=== PATIENT | male | born 1950 | race Caucasian/White ===

== ENCOUNTER 2017-03-16 17:35 | Inpatient (IN) | payer OTHER ==
[~2017-03-16] VITALS: Ht 172.7 cm; Wt 145.9 kg
[2017-03-16 17:39] VITALS: BP 128/64; PULSE 113; RESP 30; O2SAT 96
[2017-03-16 18:10] LABS: BASOPHILS % (AUTO) 0.1 % (0-3); EOSINOPHILS % (AUTO) 0 % (0-5); MONOCYTES % (AUTO) 7.1 % (4-12); Mean Corpuscular Hemoglobin 32.4 pg (27.0-35.0); NEUTROPHILS % (AUTO) 82.7 % (40-74); Platelet Count 120 bil/L (150-400)
[2017-03-16 18:16] VITALS: BP 108/65; PULSE 144; RESP 34; O2SAT 96
--- NOTE | 2017-03-16 18:31 | DRSVH ---
PROCEDURE: X-RAY CHEST ONE VIEW, PORTABLE ([id number]) INDICATIONS: SHORTNESS OF BREATH, fever TECHNIQUE: One view of the chest was acquired. COMPARISON: None. FINDINGS: Surgical changes and devices: None. Lungs and pleura: No pleural effusions or pneumothorax. Lungs are clear. Mediastinum: Mediastinal contours appear normal. Heart size is normal. Bones and chest wall: No suspicious bony lesions. Overlying soft tissues appear unremarkable. IMPRESSION: No acute disease is seen a semiupright portable chest. Dictated by: Kerwin Forbes M.D. on 03/16/2017 at 18:28 Approved by: Kerwin Forbes M.D. on 03/16/2017 at 18:30
--- NOTE | 2017-03-16 18:34 | ED.REPORT ---
HPI-General Illness Date of Service March 16, 2017 ED Provider: Will Cooley MD 66 year old male with a hx of HTN, Afib and bilat PE tubes who presents to the ER with 72 hours of fever. Associated symptoms include ear pain, SOB and N/V/D. Pt also had a dog bite to his right hand with no signs of infection. Nursing Notes Stated Complaint: HIGH TEMP,LEG SWELLING Chief Complaint: General Complaint Nursing Notes Reviewed: Yes Allergies: Coded Allergies: No Known Allergies (Verified , 06/13/06) states is not allergic to codeine General Time Seen by MD: 18:32 Chief Complaint Fever Hx Obtained From: Patient, Other family... Arrived By: Wheelchair Sudden in Onset?: No Onset Occurred: 3 days ago Symptom Duration: Since onset Location: : Ear left: Ear right Quality: Painful Severity: Current: Mild Associated with: Reports: Fever, Shortness of breath Past Medical History Past Medical History Reports: Hypertension, Denies: Asthma, Cancer, Congestive heart failure, Diabetes mellitus, Stroke Reports: Atrial fibrillation (on Pradaxa) Past Surgical History R mastoid Bilat PE tubes Smoking History Current Every Day Smoker Social History Alcohol Use: Denies alcohol use Drug Use: Denies drug use Review of Systems Full Review of Systems Constitutional: Reports: Fever Ears / Nose / Throat: Reports: Earache bilateral Respiratory: Reports: Shortness of breath GI: Reports: Diarrhea, Nausea, Vomiting Complete sys rev & neg: except as marked. Physical Exam Vital Signs Vital Signs Date Time Temp Pulse Resp B/P Pulse Ox O2 Delivery O2 Flow Rate FiO2 03/16/17 18:16 144 34 108/65 96 Room Air 03/16/17 17:39 38.7 113 30 128/64 96 Room Air Initial VS: Reviewed Head / Eyes: Atraumatic, Normocephalic, PERRL ENT: Conjunctiva normal, No scleral icterus Respiratory: Breath sounds normal, Clear to auscultation, No respiratory distress Abdomen / GI: Soft, Non-tender, No guarding, No rebound, No distention Extremities: Vascular intact (Peripheral edema bilat), Neuro intact, No tenderness Skin: Warm, Dry, No cyanosis (Healing dog bite wound to R hand without any surrounding erythema, swelling or tenderness. ) Neurologic: Alert, Oriented, Nonfocal Psychiatric: Mood/affect normal, Behavior normal, Normal thought content General/Constitutional: Awake, Alert Appearance / Presentation: Positive: Obese Hard of hearing ENT: Mucous membranes moist, Pharynx NL Ears: Bilat tubes and opacity. Fluid on L. Cardiovascular: Peripheral circulation NL Heart Rate / Rhythm: Positive: Irreg irregular rhythm, Tachycardia Interpretation & Diagnostics Lab Results Interpretation Result Diagram: 03/16/17 1748 03/16/17 1745 Test 03/16/17 17:45 03/16/17 17:48 03/16/17 19:15 Sodium Level 135mEq/L (134-144) Potassium Level 4.8mEq/L (3.5-5.2) Chloride Level 97mEq/L (97-108) Carbon Dioxide Level 21mmol/L (18-29) Blood Urea Nitrogen 32mg/dL (8-27) Creatinine 2.14mg/dL (0.76-1.27) Estimat Glomerular Filtration Rate 33mL/min (>59) Glucose Level 111mg/dL (60-99) Lactic Acid Level 3.5mmol/L (0.4-2.0) Calcium Level 9.1mg/dL (8.5-10.1) Magnesium Level 1.0mg/dL (1.6-2.6) Total Bilirubin 0.6mg/dL (0.0-1.2) Aspartate Amino Transf (AST/SGOT) 31U/L (0-50) Alanine Aminotransferase (ALT/SGPT) 27U/L (0-44) Alkaline Phosphatase 64U/L (25-160) Troponin T 0.083ug/L (0.0-0.011) Pro-B-Type Natriuretic Peptide 3998pg/mL (0-210) Total Protein 6.8g/dL (6.4-8.4) Albumin 3.2g/dL (3.4-5.0) White Blood Count 8.9th/mm3 (3.8-10.1) Red Blood Count 4.10mil/mm3 (4.40-5.80) Hemoglobin 13.3g/dL (13.8-17.2) Hematocrit 40.6% (41.0-50.0) Mean Corpuscular Volume 99.0fL (81-100) Mean Corpuscular Hemoglobin 32.4pg (27.0-35.0) Mean Corpuscular Hemoglobin Concent 32.8% (32.0-37.0) Red Cell Distribution Width 15.3% (12.3-15.4) Platelet Count 120bil/L (150-400) Neutrophils (%) (Auto) 82.7% (40-74) Lymphocytes (%) (Auto) 9.9% (14-46) Monocytes (%) (Auto) 7.1% (4-12) Eosinophils (%) (Auto) 0% (0-5) Basophils (%) (Auto) 0.1% (0-3) Urine Color Dark yellow (YELLOW) Urine Appearance Hazy (CLEAR,HAZY) Urine pH 5.0 (5.0-8.0) Urine Specific [place] 1.025 (1.003-1.035) Urine Protein 300mg/dL (NEG,TRACE) Urine Glucose (UA) Negativemg/dL (NEGATIVE) Urine Ketones Negativemg/dL (NEGATIVE) Urine Occult Blood Large (NEGATIVE) Urine Nitrite Negative (NEGATIVE) Urine Bilirubin Negative (NEGATIVE) Urine Urobilinogen Normalmg/dL (NORMAL) Urine Leukocyte Esterase Negative (NEGATIVE) Urine RBC 0-2/hpf (0-2) Urine WBC 0-5/hpf (0-5) Urine Epithelial Cells Few/hpf (NONE-MOD) Urine Crystals Amorphous urates (NONE Urine Bacteria None/hpf (NONE-FEW) Urine Hyaline Casts None/lpf (NONE) Urine Granular Casts None seen (NONE SEEN) Urine Waxy Casts None seen (NONE SEEN) Urine Red Blood Cell Casts None seen (NONE SEEN) Urine White Blood Cell Casts None seen (NONE SEEN) Urine Mucus None seen (None Seen) Urine Trichomonas None seen (NONE SEEN) Urine Yeast None (NONE SEEN) Urinalysis Comment None Urine Culture Reflexed Not indicated General Lab Results Interp 1: Labs reviewed ECG Interpretation ECG Interpretation: RBBB and LPFB Time: 17:55 Interpreted by: ED physician Rhythm / Conduction: Atrial fibrillation (rate 127) X-Ray Chest Interpretation Chest Xray Interpretation: IMPRESSION: No acute disease is seen a semiupright portable chest. Dictated by: Kerwin Forbes M.D. on 03/16/2017 at 18:28 View: Portable, 1 view Interpretation / Wet Read by: Interpret - Radiologist Re-Eval/Medical Decision Time of Eval: 20:02 Re-Evaluation/Progress Note: Updated pt of labs, ECG and imaging results. Recommended admission. Pt understands and agrees with plan. All questions addressed. Consultation : Referral / Consult Name: Jeff Jimenez MD Consulted With: Hospitalist Call Returned at: 20:03 Delivery Recruiter: Will see patient, Agrees with eval, Agrees with plan, Accepts admit Counseled Regarding: Diagnosis, Lab results, Need for admission Discharge & Departure Primary Impression: Sepsis Sepsis type: sepsis due to unspecified organism Qualified Code: A41.9 - Sepsis, unspecified organism Disposition: ADMITTED TO HOSPITAL Discharge Condition All VS Reviewed: Yes Referrals: Romeo Sandoval MD (PCP) Scribe Attestation Portions of this note were transcribed by Mari Buchanan. I, (Dr. Cooley) personally performed the history, physical exam and medical decision-making; I reviewed and confirmed the accuracy of the information in the transcribed note. Signed by: Mari Buchanan. Leah, 03/16/2017, 195 copies to: Romeo Sandoval MD, Kirk H MD March 16, 2017 18:34 Mari Buchanan March 16, 2017 18:40
[2017-03-16] MEDS ORDERED: 0.9% Sodium Chloride 1,000 ML IV ONE (18:44)
[2017-03-16] MEDS ORDERED: Tobramycin per Pharmacist XX ONE (18:45)
[2017-03-16] MEDS ORDERED: Piperacillin-Tazo 3.375 Gm Inj 3.375 GM in Dextrose 5% Minibag Plus 50 ML IV ONE (18:45)
[2017-03-16] MEDS ORDERED: Vancomycin Dose per Pharmacist XX ONE (18:45)
[2017-03-16] MEDS ORDERED: Doxycycline Inj 100 MG in Dextrose 5% 100 ML IV ONE (18:45)
[2017-03-16 19:03] LABS: TROPONIN T 0.083 ug/L (0.0-0.011)
[2017-03-16] MEDS ORDERED: Magnesium Sulf 2 Gm/50mL Water 2 GM in IV Premix 1 EACH IV ONE (19:35)
[2017-03-16 20:12] LABS: APPEARANCE,URINE HAZY (CLEAR,HAZY); COLOR,URINE DARK YELLOW (YELLOW)
[2017-03-16 20:13] LABS: OCCULT BLOOD,URINE LARGE (NEGATIVE); UROBILINOGEN,URINE NORMAL (NORMAL)
[2017-03-16] MEDS: Piperacillin-Tazo 3.375 Gm Inj 3.375 GM in Dextrose 5% Minibag Plus 50 ML IV SCH (20:30)
[2017-03-16] MEDS ORDERED: Alum-Mag Hydrox-Simeth 30 mL Suspension PO PRN ×2 (20:50→20:55)
[2017-03-16] MEDS ORDERED: Ondansetron 2 mg/mL 2 mL Inj IVPUSH PRN ×2 (20:50→20:55)
[2017-03-16] MEDS ORDERED: Polyethylene Glycol (PEG) 17 Gm Powder PO PRN (20:55)
--- NOTE | 2017-03-16 21:05 | PCM.HPMED ---
Subjective Date of Service March 16, 2017 Primary Provider: Admitting Physician: Jeff Jimenez MD Primary Care Physician: Tana Sandoval MD Attending Physician: Jeff Jimenez MD Admit Status: From the Emergency Department Chief Complaint: Shortness of breath and chills History of Present Illness: This is a 66-year-old male with past medical history significant for atrial fibrillation and hypertension who presents today for shortness of breath and chills. Patient states that beginning approximately 3 days ago he began having shortness of breath. Shortness of breath is worse with exertion. The patient also describes orthopnea but no paroxysmal nocturnal dyspnea. He has been sleeping in a recliner for the last several days due to shortness of breath on lying down. Associated symptoms: Diaphoresis. He also describes worsening lower extremity swelling. He states that he had a echocardiogram one year ago that was normal but these records are not available for review today. The patient denies any chest pain or pressure, numbness or tingling in extremities, diarrhea, nausea, vomiting. Of note, the patient did have a dog bite to his right hand 2 weeks ago. He also was shucking oysters this weekend and had a small burn on his abdomen while cooking these oysters. No recent travel outside of country. In the emergency department initial vitals were temperature 38.7 Celsius, pulse 113, respiratory rate 30, blood pressure 128/64, satting at 96% on room air. Initial laboratory values WBC 8.9 with left shift, hemoglobin 13.3, hematocrit 40.6, platelets 120. BUN 32, creatinine 2.14, glucose 111, lactic acid 3.5, magnesium 1.0, troponin 0.083, proBNP 3998. Urinalysis showed no concerning abnormalities. Chest x-ray showed no acute disease. EKG showed atrial fibrillation with rate of 1:30. QTC 499. Review of Systems: A comprehensive review of systems was conducted with the patient and found to be negative except as above in the History of Present Illness. Allergies Coded Allergies: No Known Allergies (Verified , 06/13/06) states is not allergic to codeine Home Medications Patient was not able to recall his medications and stated his manages these. PMH Atrial fibrillation Chronic ear infections Morbid obesity Tobacco use disorder . Surgical History Bilateral ear tube placement Family History Mom and dad both of cancer but patient cannot recall the type. Social History Hx Alcohol Use: No Hx Substance Use: No Hx Tobacco Use: Yes Smoking Status: Current Every Day Smoker Additional Information [id number] of smoking. Exam Vital Signs Vital Sign - Last Date Time Temp Pulse Resp B/P Pulse Ox O2 Delivery O2 Flow Rate FiO2 03/16/17 18:16 144 34 108/65 96 Room Air 03/16/17 17:39 38.7 Exam General: No acute distress, obese, appropriately interactive HEENT: Normocephalic, atraumatic. External ears without defect. Pupils equal, round, and reactive to light and accommodation. Anicteric sclerae, moist conjunctivae, and no lid lag. Oropharynx free of erythema and cobble stoning with moist mucosa. Neck: Supple with full range of motion. No jugular venous distension. No bruits. No lymphadenopathy or thyromegaly. Cardiovascular: Irregularly irregular with no murmurs, rubs, or gallops appreciated Pulmonary: Crackles present at bases bilaterally. NO wheezes or rhonchi. Mild tachypnea. Abdomen: Bowel tones present. Soft, nontender, obese. No hepatosplenomegaly or masses appreciated. Extremities: Bilateral lower extremity 1+ edema to mid calf. No lymphadenopathy throughout upper or lower extremities. Skin: Small, 1x1 cm blister with slight erythema overlaying on left lower quadrant of abdomen (burn from cooking oysters). Small, .5x.5cm pustule on left sternal border with some purulent discharge with small amount of pressure but no erythema surrounding. Patient also is to bite holloway on right hand palmar surface with no surrounding erythema and appears well-healing. Neurological: Cranial nerves grossly intact. Normal muscle strength, tone, and bulk. Reflexes, coordination, and sensory function within normal limits. No known gait impairment. Psychiatric: Normal mood and affect. Alert and oriented to person, place, and time. Lab and Diagnostics Result Diagram: 03/16/17 1748 03/16/17 1745 X-Rays, CTs and MRIs Chest x-ray on 03/16/2017: IMPRESSION: No acute disease is seen a semiupright portable chest. Dictated by: Kerwin Forbes M.D. on 03/16/2017 at 18:28 Assessment & Plan This is a 66-year-old male with past medical history significant for atrial fibrillation on pradaxa who presents today for shortness of breath and chills. On admit the patient did meet systemic inflammatory response syndrome criteria with a temperature of 38.7, pulse 113, respiratory rate of 30. He also had a lactic acid of 3.5. This does seem to be a infectious origin although a definite source has not been identified. Potential sources include the bite tana on his right hand and blister on his abdomen from cooking oysters. Doubt vibrio as he has no nausea, vomiting, diarrhea. He is on doxycycline. None of these areas look acutely infected. The patient also has orthopnea and worsening lower external swelling. His proBNP is 3998. Therefore the could be a component of heart failure as well. Pulmonary embolus is in differential but this is doubtful as he is been fairly consistent with his pradaxa other than missing 1 dose this morning. Systemic inflammatory response syndrome with possible Sepsis, present on admission, ongoing: -Temperature 38.7 Celsius, pulse 113, respiratory rate 30. We do not have a definite source of infection. - possible source includes skin infections with recent dog bite or vibrio infection with exposure to oysters -Trend lactic acids. Lactic acid on admit was 3.5. We will continue fluid boluses until lactic acid is less than 2. -Broad-spectrum antibiotics as no definite source of infection. These include vancomycin, Zosyn, and doxycycline. - Dr Abbott will be able to assist on consultation Elevated proBNP, present on admission, ongoing: -ProBNP on admit was 3998 -He has orthopnea and lower external swelling. -The possible need for an echocardiogram was mentioned to the patient and he stated that one was performed last year. He was somewhat upset that we were considering ordering another. I do not have records of that echocardiogram. I would consider an echocardiogram in the morning after discussion with patient. Elevated glucose -Patient's glucose on admit was 111. -We will order A1c. Prolonged QT, present on admission, ongoing: -QTC of 499 on admit -Patient telemetry. -Avoid QTC prolonging medications. Acute kidney injury, present on admission, ongoing: - could be pre renal azotemia with hypovolemia -Unknown if there is a chronic component. -Normal saline at 75 mL per hour. Hypomagnesemia, present admission, ongoing: -Magnesium was 1.0 on admit. Patient was given magnesium replacement. -Repeat mag in the morning Atrial fibrillation, present remission, ongoing: -Patient is currently in atrial fibrillation. His rate has been fluctuating. -We will continue to monitor. Elevated troponin, present on admission, ongoing: -Troponin I had that was 0.083 -Unknown if patient has chronically elevated troponin -We will continue to trend 3 Thrombocytopenia, present on admission, ongoing: -Platelets were 120 on admit -Unknown chronicity. -Continue to trend. We will continue pradaxa as this should provide DVT prophylaxis for the patient. Patient is admitted under inpatient status with expected length of stay greater than 2 midnights due to severity of presenting symptoms, risk of adverse event, and complexity of treatment plan. Attending Statement The patient was seen and examined together with Dr. Bernstein on 03/16 and I agree with the history, exam and plan as outlined in the note above. Chaka Bernstein DO March 16, 2017 21:05 Jeff Jimenez MD March 16, 2017 23:22
[2017-03-16 21:06] VITALS: BP 93/59; PULSE 132; RESP 33; O2SAT 97
[2017-03-16 21:37] VITALS: BP 108/63; PULSE 117; RESP 18; O2SAT 96
[2017-03-16] MEDS ORDERED: 0.9% Sodium Chloride 100 ML ONE (21:39)
[2017-03-16] MEDS ORDERED: ALLO300T2 PO (23:21)
[2017-03-16] MEDS ORDERED: ZYL100 PO (23:21)
[2017-03-16] MEDS ORDERED: DILTIAZEM PO (23:21)
[2017-03-16] MEDS ORDERED: COLC0.6C3 PO (23:21)
[2017-03-16] MEDS ORDERED: LISI-571 PO (23:21)
[2017-03-16] MEDS ORDERED: DABI150C PO (23:21)
[2017-03-16] MEDS ORDERED: PRD5T PO (23:21)
[2017-03-17] VITALS (8 sets, daily range): BP systolic 96–125; BP diastolic 56–70; PULSE 90–122; RESP 20–24; O2SAT 97–99
[2017-03-17] MEDS: Sodium Chloride LOK Flush 10 mL Syringe IVFLUSH SCH ×4 (00:30→22:05)
[2017-03-17] MEDS ORDERED: Heparin 5,000 Unit/mL Inj SUBQ SCH (00:30)
[2017-03-17] MEDS ORDERED: DILT180C83 PO (00:40)
[2017-03-17] MEDS: 0.9% Sodium Chloride 1,000 ML IV SCH ×2 (00:53→13:24)
[2017-03-17 03:38] LABS: BASOPHILS % (AUTO) 0.2 % (0-3); EOSINOPHILS % (AUTO) 0.2 % (0-5); MONOCYTES % (AUTO) 8.1 % (4-12); Mean Corpuscular Hemoglobin 32.7 pg (27.0-35.0); Mean Corpuscular Volume 97.7 fL (81-100); NEUTROPHILS % (AUTO) 78.1 % (40-74); Platelet Count 112 bil/L (150-400)
[2017-03-17 04:04] LABS: Magnesium 1.6 mg/dL (1.6-2.6)
--- NOTE | 2017-03-17 06:22 | PCM.CONPHA ---
Subjective Date of Service: Mar 17, 2017 Requesting Provider: Chaka Bernstein DO Shortness of breath and chills History of Present Illness sepsis of unknown source Reason for Pharmacy Consult: Vancomycin Dosing Objective Assessment/Plan Assessment/Plan A/ - 66 y/o male patient admitted in late last night for sepsis of unknown source , antibiotics protocol was initiated - Febrile, WBC: 8.9 with left shift, lactic acid - 3.5, blood cultures (x2) pending - Comitant abx: zosyn and doxycycline - In ED, received loading dose of Vancomycin 2G - Wt: 142.4kg, ht: 172.7cm, SCr: 2.14 mg/dL (acute kidney injury) @ admission, slightly down to 2.02 this am lab, est. clearance ~40ml/min, BMI: 47.7 kg/m2, Vd ~78L/kg, t1/2~18hrs P/ - Give Vancomycin 2g iv q24h, starts 14 hrs after loading dose as renal clearance is improving. Trough level ordered before 3rd dose @1330 03/18 Pharmacy will follow and make necessary adjustment Thank you for consulting clinical pharmacy in the care of this patient Gudelia Carrington Mar 17, 2017 06:22
[2017-03-17] MEDS ORDERED: Vancomycin Dose per Pharmacist XX ONE (08:30)
[2017-03-17] MEDS: Dabigatran 150 mg Capsule PO SCH ×2 (09:59→21:59)
[2017-03-17] MEDS: Piperacillin-Tazo 3.375 Gm Inj 3.375 GM in Dextrose 5% Minibag Plus 50 ML IV SCH ×2 (09:59→21:59)
[2017-03-17] MEDS: Diltiazem CD 180 mg ER24 Capsule PO SCH ×2 (10:00→22:00)
[2017-03-17] MEDS: predniSONE 5 mg Tablet PO SCH (10:00)
--- NOTE | 2017-03-17 14:55 | PCM.PNMED ---
Subjective Date of Service Mar 17, 2017 Subjective Follow-up follow shortness of breath, fever and chills. Patient seen and examined at bedside. Admitting note, x-rays, lab data, and medication reviewed. Plan of care discussed with nursing staff. Patient stated he is feeling better. He denied any chest pain. He said he is no longer had fever or chills and wonders when he can go home Exam Vital Signs Vital Sign - Last Date Time Temp Pulse Resp B/P Pulse Ox O2 Delivery O2 Flow Rate FiO2 03/17/17 13:01 37.7 122 22 118/59 98 Room Air 03/17/17 04:33 1.50 Intake and Output 03/16/17 03/16/17 03/17/17 Cumulative From/Thru 15:00 23:00 07:00 03/16/17 17:39 - 03/17/17 06:55 Intake Total 1150 ml 200 ml 1350 ml Output Total 100 ml 550 ml 650 ml Balance 1050 ml -350 ml 700 ml Intake Oral 200 ml 200 ml IV Total 1150 ml 1150 ml Output Urine Total 100 ml 550 ml 650 ml # Voids 1 1 2 # Bowel Movements 1 1 Exam Gen : Morbidly obese male. In bed comfortably. No acute distress HEENT : [place], sclerae anicteric Neck : Trachea is midline, no JVD Chest : Normal respiratory efforts, no use of accessory muscles Heart : S1, S2 regular rate and rhythm, no gallop, no murmur. Lungs: Decreased air entry bilaterally,, no wheezing Abdomen: Obese abdomen, difficult by patient due to body habitus. Bowel sounds audible carotid Extremity: No edema, no cyanosis Skin: No rash, no ulcers. Neuro : Grossly nonfocal IVs and Medications Medications Reviewed: Medications were reviewed in detail Lab and Diagnostics Result Diagram: 03/17/17 0305 03/17/17 0305 X-Rays, CTs and MRIs Chest x-ray on 03/16/2017: IMPRESSION: No acute disease is seen a semiupright portable chest. Dictated by: Kerwin Forbes M.D. on 03/16/2017 at 18:28 Assessment & Plan This is a 66-year-old male with past medical history significant for atrial fibrillation on pradaxa who presents today for shortness of breath and chills. On admit the patient did meet systemic inflammatory response syndrome criteria with a temperature of 38.7, pulse 113, respiratory rate of 30. He also had a lactic acid of 3.5. This does seem to be a infectious origin although a definite source has not been identified. Potential sources include the bite tana on his right hand and blister on his abdomen from cooking oysters. Doubt vibrio as he has no nausea, vomiting, diarrhea. He is on doxycycline. None of these areas look acutely infected. The patient also has orthopnea and worsening lower external swelling. His proBNP is 3998. Therefore the could be a component of heart failure as well. Pulmonary embolus is in differential but this is doubtful as he is been fairly consistent with his pradaxa other than missing 1 dose this morning. 1. SIRS : Stable. No sinal evidence of sepsis -Continue broad-spectrum antibiotics with Zosyn, vancomycin and doxycycline. - Clear source of infection was established. Patient has a recent dog bite in his right hand with no evidence of erythema, swelling, or infected wound. He also has a blister in his lower abdomen as a result of burning while cooking. - This blister is likely to be a source infection -Infectious diseases consulted by admitting physician 2. Elevated troponin. -No angina or chest pain, but patient has been having shortness of breath which may be an equivalent of angina. -Will monitor troponin level and consult cardiology. -Echocardiogram is pending 3. Elevated ProBNP on admit was 3998 -He has orthopnea and lower external swelling. -Echocardiogram pending -This is a morbidly obese patient, with suspected sleep apnea and PICKWICKIAN syndrome/. Patient has underlying COPD as well . He is a heavy smoker with an over 50 years pack 4. Elevated glucose -Patient's glucose on admit was 111. - A1c. 4. Prolonged QT, present on admission, ongoing: -QTC of 499 on admit -Patient telemetry. -Avoid QTC prolonging medications. 5. Acute kidney injury, present on admission, ongoing: - could be pre renal azotemia with hypovolemia -Unknown if there is a chronic component. Patient has a very ambiguous collection about his past medical history - We will need to electrolyte function. 6. Hypomagnesemia, present admission, ongoing: -Replace prn. 7. Atrial fibrillation, present remission, ongoing: -Patient is currently in atrial fibrillation. His rate has been fluctuating. -We will continue to monitor. -Anticoagulated with Pradaxa 8.- Thrombocytopenia, present on admission, ongoing: -Platelets were 120 on admit -Unknown chronicity. -Continue to trend. 9. Tobacco abuse ; Cessation discussed , nicotine patch offered Hemodynamically and clinically stable. Plan of care is as above and will be adjusted as per clinical course cbc, cmp, troponin in am Time spent 35 minutes Genaro Castro MD Mar 17, 2017 14:55
[2017-03-17] MEDS: Vancomycin Inj 2,000 MG in 0.9% Sodium Chloride 500 ML IV SCH (15:43)
[2017-03-17] MEDS ORDERED: Doxycycline Inj 100 MG in Dextrose 5% Minibag Plus 100 ML IV SCH (20:00)
[2017-03-18] VITALS (9 sets, daily range): BP systolic 99–117; BP diastolic 50–71; PULSE 69–87; RESP 18–20; O2SAT 93–99
[2017-03-18] MEDS: 0.9% Sodium Chloride 1,000 ML IV SCH ×2 (00:51→16:33)
[2017-03-18 02:55] LABS: BASOPHILS % (AUTO) 0.2 % (0-3); EOSINOPHILS % (AUTO) 2.5 % (0-5); Mean Corpuscular Hemoglobin 32.2 pg (27.0-35.0); Mean Corpuscular Volume 99.7 fL (81-100); NEUTROPHILS % (AUTO) 66.7 % (40-74); Platelet Count 103 bil/L (150-400)
[2017-03-18 03:23] LABS: ERYTHROCYTE SEDIMENTATION RATE 45 mm/hr (0-30)
[2017-03-18 04:14] LABS: TROPONIN T 0.067 ug/L (0.0-0.011)
[2017-03-18] MEDS: Sodium Chloride LOK Flush 10 mL Syringe IVFLUSH SCH ×3 (08:30→21:33)
[2017-03-18] MEDS: Diltiazem CD 180 mg ER24 Capsule PO SCH ×2 (09:37→21:32)
[2017-03-18] MEDS: Dabigatran 150 mg Capsule PO SCH ×2 (09:37→21:31)
[2017-03-18] MEDS: predniSONE 5 mg Tablet PO SCH (09:37)
[2017-03-18] MEDS: Piperacillin-Tazo 3.375 Gm Inj 3.375 GM in Dextrose 5% Minibag Plus 50 ML IV SCH ×2 (09:38→21:31)
[2017-03-18] MEDS ORDERED: Vancomycin Serum Trough XX ONE (13:30)
--- NOTE | 2017-03-18 14:06 | CONS ---
[address] [address] CONSULTATION REPORT PATIENT: XIAO ALEXIS : 1950 MR#: [id number] ADMIT: 03/16/2017 JOB ID: [id number] DATE OF SERVICE: 03/18/2017 REQUESTING PHYSICIAN: I thank Dr. Castro for this timely consult. REASON FOR CONSULTATION: Sepsis with elevated procalcitonin following dog bite and burn. HISTORY OF PRESENT ILLNESS: The patient is a 56-year-old gentleman whose past medical history is fairly limited, though he does have morbid obesity, recurrent ear infections, and some atrial fibrillation. 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 The patient states he was in his usual state of reasonably good health until about two weeks ago when he was nipped on the right hand by one of his show dogs. He treated this with some topical antibacterial cream and watched it closely, and the puncture wounds, or the injury from the dog's mouth to his right hand, rapidly resolved. There was no lymphangitic spread, associated fevers, chills, or any toxicity. About 10 days later, he was cooking oysters on or about March 13 on a hot grill when some juice from one of the super-heated oysters splattered onto his left lower abdomen and created a very small burn. A welt formed at the site of this injury, but it was quite small, not painful, and not of great concern to the patient. Subsequently, he developed the insidious onset of fever, chills, sweats, nausea, vomiting, diarrhea, and generalized weakness. This was associated with some degree of shortness of breath and probably the same day that he incurred the burn to his abdomen. He thinks the oyster juice-induced burn on his abdomen occurred some hours or part of a day prior to the onset of these symptoms which intensified and led him to the ER where he was admitted on March 16. He did not eat any oysters raw and has no other known sources of infection. He states that in addition to the fevers, chills, and sweats, he has had some increased shortness of breath as was reported but not much in the way of cough. He is an ongoing cigarette smoker at this point. He denies, though, any purulent sputum, any pleuritic chest pain. He did have some nausea and vomiting which have resolved. His fevers and chills have also resolved here in the hospital with empiric antibiotics. He denies any dysuria, urgency, or frequency. He denies ill contacts and states that his , who eats the same diet as he does, has not been sick. He has had some recurrent loose stools, however, since his admission here. PAST MEDICAL HISTORY: 1. Atrial fibrillation. 2. Hypertension. 3. Morbid obesity with BMI approaching 50. 4. History of recurrent urine infections. 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 He drinks alcohol infrequently and is a cigarette smoker, however. He has not traveled outside the country and has no unusual exposures beyond that to his dogs. FAMILY HISTORY: Negative for TB in first and second degree relatives. REVIEW OF SYSTEMS: The patient states he has no significant headache at this point, no visual changes, no sore throat or trouble swallowing. He has chronic ear issues, but these do not seems any worse than baseline. The patient notes he has occasional wheezing which may be baseline for him. He is not short of breath and having no chest pain. His nausea and vomiting, which were a feature of his illness earlier, have resolved. He has no abdominal pain, per se, and even the small burn on his left lower abdomen is basically nontender. No urgency, frequency, or dysuria. He has had some loose bowel movements, including one today. No significant pain or problems in the extremities. No swelling of the joints, no skin rash, and no acute arthritic symptoms. Remainder of the review of systems is negative. PHYSICAL EXAMINATION: Reveals an afebrile gentleman. Temperature 36.8, pulse 72, respiratory rate 20, blood pressure 100/56. He is saturating well on 2 L. the patient is awake, alert, and joking. He is certainly in no distress whatsoever. No head trauma. Eyes without conjunctivitis or scleral icterus. Nose appears normal. Oral cavity without thrush, hairy leukoplakia, or pharyngitis. Neck reasonably supple. No adenopathy in the neck. No JVD. Lungs with some scattered wheezes bilaterally but not impressive. No focal rales are heard. No pleural rub is heard. Cardiac tones: Irregular rate and rhythm without murmur. The abdomen is distended consistent with his obesity. No hepatosplenomegaly. He has a 2 x 1.5 cm almost circular bleb just to the left of his umbilicus where he was struck with the hot oyster juice. This bleb has clear fluid in it which we aspirated and sent to the lab for gram stain and culture. The fluid which came out of the bleb when it was ruptured with the insulin needle was completely clear and did not look purulent in any way. there was no significant erythema or cellulitis surrounding this bleb, and the area of the abdominal wall around the bleb certainly appears benign. No suprapubic fullness. He does not have a Avila catheter. He does not have inguinal adenopathy. His lower extremities are notable for reasonable pulses in the feet with reasonable capillary refill as well. There is no evidence for cellulitis, synovitis, skin breakdown, or infection in the legs or the arms. The patient is neurologically intact, gives a good history, and can move everything. LABORATORY DATA: Include white count 5100. Platelet count is low at 103 and slowly declining. Hematocrit 36. Sedimentation rate slightly up at 45. Troponins are minimal elevated. Procalcitonin was 2.1 when he came in, and it is now 4.8 two days later. Creatinine is 2. We do not have a baseline in this computer to know what his baseline creatinine is. Glucose is between 114 and 125. LFT is entirely normal. Urinalysis without any white cells, though he does have significant proteinuria. No serologies are available. Micro studies include two sets of negative blood cultures and nothing else. Those are now 48 hours old. Chest x-ray is clear. No other imaging is available. IMPRESSION: This is an interesting case of a 66-year-old gentleman who was in his usual state of reasonably good health until two weeks ago when he suffered a dog bit to his right hand, but this healed uneventfully, and I think it is unrelated to any events currently transpiring unless he should bag turner to have endocarditis which I think is unlikely. More recently, five days ago, he suffered a burn to his left lateral abdominal wall from hot oyster juice. This is more temporally related to the onset of his symptoms, but the wound itself does not appear all that impressive, and I would be a bit surprised if that is the cause of his current situation unless he has streptococcal or staphylococcal systemic infection. At this point, it would appear the patient has a serious systemic infection based on his elevated procalcitonin, though his clinical appearance is rather benign. He also has significant renal impairment with a creatinine of 2 and heavy proteinuria seen on his urinalysis. RECOMMENDATIONS: 1. I would continue with our empiric antibiotics which currently include vancomycin, doxycycline, and Zosyn. 2. A MRSA screen should be obtained, and if that is negative, we can drop the vancomycin. 3. An ASO titer will be checked. 4. Hepatitis C will be checked. 5. Culture from the abdominal wall has been ordered. 6. It may be reasonable to consider consulting the renal team given the patient's degree of renal impairment and his elevated procalcitonin. 7. Will continue to follow this case closely with you.
--- NOTE | 2017-03-18 15:19 | PCM.PNMED ---
Subjective Date of Service Mar 18, 2017 Subjective Follow up for fever, chills, shortness of breath No significant interval development . No CP, Still short of breath on exertion Exam Vital Signs Vital Sign - Last Date Time Temp Pulse Resp B/P Pulse Ox O2 Delivery O2 Flow Rate FiO2 03/18/17 12:35 36.7 77 18 107/57 95 Nasal Cannula 2.00 Intake and Output 03/17/17 03/17/17 03/18/17 Cumulative From/Thru 15:00 23:00 07:00 03/16/17 17:39 - 03/18/17 06:19 Intake Total 778 ml 1684 ml 600 ml 4412 ml Output Total 500 ml 250 ml 1400 ml Balance 778 ml 1184 ml 350 ml 3012 ml Intake Oral 1040 ml 600 ml 1840 ml IV Total 778 ml 644 ml 2572 ml Output Urine Total 500 ml 250 ml 1400 ml # Voids 3 5 # Bowel Movements 0 1 2 Exam Gen : Morbidly obese male. AAO x 3. In bed comfortably. No acute distress HEENT : [place], sclerae anicteric Neck : Trachea is midline, no JVD, no cervical lymphadenopahty Chest : Normal respiratory efforts, no use of accessory muscles Heart : S1, S2 regular rate and rhythm, no gallop, no murmur. Lungs: Decreased air entry bilaterally,, no wheezing, no crackles Abdomen: Obese abdomen, difficult by patient due to body habitus. Bowel sounds audible carotid Extremity: No edema, no cyanosis, no calf tenderness Neuro : AAO x 3 Grossly intact IVs and Medications Medications Reviewed: Medications were reviewed in detail Lab and Diagnostics Result Diagram: 03/18/17 0245 03/18/17 0245 X-Rays, CTs and MRIs Chest x-ray on 03/16/2017: IMPRESSION: No acute disease is seen a semiupright portable chest. Dictated by: Kerwin Forbes M.D. on 03/16/2017 at 18:28 Assessment & Plan This is a 66-year-old male with past medical history significant for atrial fibrillation on pradaxa who presents today for shortness of breath and chills. On admit the patient did meet systemic inflammatory response syndrome criteria with a temperature of 38.7, pulse 113, respiratory rate of 30. He also had a lactic acid of 3.5. This does seem to be a infectious origin although a definite source has not been identified. Potential sources include the bite tana on his right hand and blister on his abdomen from cooking oysters. Doubt vibrio as he has no nausea, vomiting, diarrhea. He is on doxycycline. None of these areas look acutely infected. The patient also has orthopnea and worsening lower external swelling. His proBNP is 3998. Therefore the could be a component of heart failure as well. Pulmonary embolus is in differential but this is doubtful as he is been fairly consistent with his pradaxa other than missing 1 dose this morning. 1. SIRS : Stable. No sinal evidence of sepsis -Continue broad-spectrum antibiotics with Zosyn, vancomycin and doxycycline. - No fever, no chill in the past 24 hours . - Seen by ID . 2. Elevated troponin. -No angina or chest pain, but patient has been having shortness of breath which may be an equivalent of angina. -Will monitor troponin level and consult cardiology. -Echocardiogram shows normal EF . Cardiology consulted case discussed , Patient will likely need ischemic work up. 3. Elevated ProBNP on admit was 3998 -He has orthopnea and lower external swelling. 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 Patient has underlying COPD as well . He is a heavy smoker with an over 50 years pack - Sleep study to be scheduled as outpatient 4. Elevated glucose -Patient's glucose on admit was 111. A1x 5.9 Continue diabetic diet 4. Prolonged QT, present on admission, ongoing: -QTC of 499 on admit -Patient telemetry. -Avoid QTC prolonging medications. 5. Acute kidney injury, present on admission, ongoing: - could be pre renal azotemia with hypovolemia -Patient unaware of any previous kidney problem. - Creatinine 1.9 today ./ Obtain kidney US 6. Hypomagnesemia, present admission, ongoing: -Replace prn. 7. Atrial fibrillation, present remission, ongoing: -Patient is currently in atrial fibrillation. His rate has been fluctuating. -We will continue to monitor. -Anticoagulated with Pradaxa 8.- Thrombocytopenia, present on admission, ongoing: -Platelets were 120 on admit -Unknown chronicity. - Platelet count is stable 9. Tobacco abuse ; Cessation discussed , nicotine patch offered Hemodynamically and clinically stable. Afebrile on the current antibiotic. ID recommendation appreciated Cardiology consult pending. Case discussed Time spent 35 minutes Genaro Castro MD Mar 18, 2017 15:19
--- NOTE | 2017-03-18 15:42 | DRSVH ---
[facility] [address] [place] [address] Echocardiogram Report Name: XIAO ALEXIS WStudy Date : 03/18/2017 Height: 68 in Hospital Exam Location: [facility] Weight: 316 lb Gender: Male BSA: 2.5 m2 : 1950 Age: 66 yrs BP: 99/56 mmHg Reason For Study: [id number] Ordering Physician: Performed By: Chance Szymanski Interpretation Summary 1. Normal left ventricular size with moderate to severe concentric hypertrophy and normal systolic function with an estimated EF of 55 to 60%. 2. Grossly normal right ventricular size and systolic function. The estimated RVSP is 39 mm Hg. 3. Mild to moderate aortic insufficiency. 4. Dilated ascending aorta (4.5 to 4.8 cm) There is no old study for comparison Procedure: A two-dimensional transthoracic echocardiogram with color flow and Doppler was performed. The study quality was technically difficult. Comparison is made with the echocardiogram of 01/18/07. A contrast injection of Definity was performed to improve assessment of LV function. The patient was in atrial fibrillation with controlled ventricular rate during the exam. Left Ventricle: The left ventricle is normal in size. There is moderate- severe concentric left ventricular hypertrophy. Mildly elevated LVOT velocities. The ejection fraction is estimated to be 55-60%. There are no obvious focal wall motion abnormalities noted but poor endocardial definition reduces the sensitivity for the detection of such. Right Ventricle: The right ventricle grossly appears normal in size with probable normal systolic function. Atria: The left atrium is not well visualized. Grossly, it is atleast moderately dilated. Right atrium not well visualized. There is no Doppler evidence for an atrial septal defect. Mitral Valve: The mitral valve leaflets appear mildly thickened, but open well. There is mild mitral annular calcification. There is mild mitral regurgitation. Aortic Valve: The aortic valve is trileaflet. The aortic valve is mildly calcified. The peak aortic velocity is 2.4 m/sec. The aortic valve mean gradient is 15 mmHg. There is mild to moderate aortic regurgitation. Tricuspid Valve: The tricuspid valve leaflets are thin and pliable. There is mild tricuspid regurgitation. The right ventricular systolic pressure is estimated at 39 mmHg assuming a right atrial pressure of 8 mm Hg. Pulmonic Valve: The pulmonic valve is not well seen, but is grossly normal. There is a trace or physiologic amount of pulmonic regurgitation. Great Vessels: The aortic root is normal size. The ascending aorta is dilated at 4.5 to 4.8 cm. The pulmonary artery is normal size. The IVC is dilated (diameter is greater than 2.1 cm) yet it collapses greater than 50% with a sniff. This suggests a right atrial pressure of 8 mm Hg. Pericardium/ Pleura There is no pericardial effusion. There is an anterior echo-free space consistent with a fat pad. There is no pleural effusion. MMode/2D Measurements & Calculations LVIDd: 5.0 cm IVC diam LVOT diam: 2.1 cm LV chadwick. diameter/BSA LVIDs: 3.4 cm : 2.3 cm Ao root diam (cm/m^2): 2.0 FS: 31.7 % EPSS: 0.00 cm asc Aorta Diam IVSd: 1.7 cm LVPWd: 1.6 cm Ao Arch Diam (Prox Trans): 3.4 cm LV sys. diameter/BSA (cm/m^2): 1.4 Doppler Measurements & Calculations Ao V2 max MV E max dejuan TR max dejuan MV V2 mean : 244.2 cm/sec : 126.3 cm/sec : 276.6 cm/sec : 89.0 cm/sec Ao max PG TR max P.6 mmHg MV mean PG : 24.0 mmHg MVA(VTI): 3.6 cm2 Ao mean PG MV V2 VTI : 14.7 mmHg : 24.6 cm LVOT Max Dejuan : 131.9 cm/sec TYLER(I,D): 2.2 cm sev ratio Ao V2 mean LV V1 max PG TYLER indexed to BSA : 182.9 cm/sec (cm^2/m^2): 0.87 Ao V2 VTI: 41.1 cmLV V1 VTI: 25.9 cm TYLER(V,D): 1.8 cm2 Reading Physician:03:41 PM
[2017-03-18 16:14] LABS: BASOPHILS % (AUTO) 0.2 % (0-3); EOSINOPHILS % (AUTO) 2.5 % (0-5); MONOCYTES % (AUTO) 13.2 % (4-12); Mean Corpuscular Hemoglobin 32.1 pg (27.0-35.0); NEUTROPHILS % (AUTO) 65.4 % (40-74); Platelet Count 102 bil/L (150-400)
[2017-03-18] MEDS: Vancomycin Inj 2,000 MG in 0.9% Sodium Chloride 500 ML IV SCH (16:33)
--- NOTE | 2017-03-18 16:38 | DRSVH ---
PROCEDURE: US RENAL SONOGRAM INDICATIONS: ARF TECHNIQUE: Real-time scanning was performed of the kidneys and bladder, with image documentation. COMPARISON: None. FINDINGS: Kidneys: Kidneys are normal in size. Right kidney measures 11.6 cm long; left kidney measures 12.1 cm long. Right renal cortical thickness is 1.4 cm; left renal cortical thickness is 1.5 cm. Renal c ortical echotexture is normal. No hydronephrosis or nephrolithiasis. No suspicious solid mass lesio ns. Bladder: Pre-void bladder volume is 91 mL. Post-void residual is not evaluated. Pre-void images de monstrate no intraluminal masses or stones. Miscellaneous: No free pelvic fluid. IMPRESSION: 1. Grossly normal appearance the kidneys bilaterally. Dictated by: Acosta Enrique [facility] Interpreted: Oneida Ramos MD on 03/18/2017 at 16:36 Transcribed by: ISELA on 03/18/2017 at 16:37 Approved by: Oneida Ramos MD, PhD on 03/18/2017 at 17:09
[2017-03-19] VITALS (10 sets, daily range): BP systolic 114–149; BP diastolic 56–75; PULSE 54–96; RESP 18–22; O2SAT 96–98
--- NOTE | 2017-03-19 05:22 | CONS ---
[address] [address] CONSULTATION REPORT PATIENT: XIAO ALEXIS : 1950 MR#: [id number] ADMIT: 03/16/2017 JOB ID: [id number] DATE OF SERVICE: 03/18/2017 CHIEF COMPLAINT: I was asked by the hospital team to consult on this patient given admission with fevers and some increased shortness of breath. HISTORY OF PRESENT ILLNESS: The patient is a 66-year-old man with past medical history significant for hypertension and atrial fibrillation which he said he has had for some time. He is on diltiazem as well as Pradaxa. He says he has been evaluated for shortness of breath by his primary care provider at [facility]. He had stress testing performed some time in the last year at [facility]. He tells that he was told that the results were fine. I am not sure if he had an echocardiogram in the past, but we will find that out hopefully. He says he has chronic baseline shortness of breath. He is not very active. He does have some joint issues which also limit his activity. He denies orthopnea. He denies PND. He denies chest pain or chest pressure. The reason for his admission is not related to shortness of breath. He says that he developed alternating spiking fevers with associated chills which did not seem to respond appropriately to medications to control his fevers. He has a history of a dog bite about two weeks ago, which did not seem to result in any kind of signs of infection. He also apparently got a burn on his abdomen due splattered hot oil, which caused a small welt to form. Prior to this admission, he suddenly developed these fevers, chills, sweats, some nausea and vomiting as well as weakness and some increased shortness of breath. He tells me he had fevers as high is 102 and upon arrival to the ED, he was also somewhat febrile. He now has blood cultures pending and he has also been started on antibiotics for this. Presently he says he is feeling quite well. He denies any fevers, chills, weakness, chest pain, chest pressure or shortness of breath at this time. He says when he bends his head forward sleep, he will get some wheezing and this may be related to a complex upper airway obstruction. PAST MEDICAL HISTORY/PROBLEM LIST: 1. Atrial fibrillation. He said he has had this for some time. He has been treated with rate control and Pradaxa. 2. History of chronic ear infections. MEDICATIONS: At the time of admission included: 1. Pradaxa. 2. Diltiazem ER 180 mg daily. 3. Lisinopril 5 mg. 4. Prednisone. 5. Allopurinol. 6. Colchicine. ALLERGIES: No known drug allergies. SOCIAL HISTORY: He is a smoker. No significant alcohol use. FAMILY HISTORY: No early coronary disease. REVIEW OF SYSTEMS: Overall health, as noted he had fevers, chills and weakness. This is now resolved. GI: No blood in the stool. : No dysuria or hematuria. Pulmonary: Some increased shortness of breath but now he feels back to baseline. Cardiac: As per HPI. No chest pain. No chest pressure, no orthopnea. Heme: No easily bruising or bleeding. Endocrine: No heat or cold intolerance. Musculoskeletal: No joint pain or swelling. ENT: No difficultly swallowing. No sore throat. Ophthalmology: No acute vision issues. Psych: No acute issues. All other 12 point review of systems are negative. PHYSICAL EXAMINATION: Blood pressure is 107/57, heart rate 77, sats are 95% on 2 L. General: In no acute distress. Speaking in full sentences without pressured breath. Head and neck exam: Normocephalic, atraumatic. Neck: No obvious JV distention. Heart exam: Irregular without obvious murmurs, gallops or rubs appreciated. Lungs sound clear anteriorly. Abdomen is soft. There is a scabbed area on his mid chest area which does not appear significant. Back: No CVA tenderness to palpation. Extremities: Warm. No appreciable edema. 2+ distal pulses. Skin: Other than the left area of scabbing appreciated, no significant lesions appreciated. Neuro: Alert and oriented. Gait not tested. Psych: Appropriate mood and affect. ENT: Mucous membranes moist. Ophthalmology: No vision grossly normal. LABORATORY AND DIAGNOSTIC STUDIES: EKG shows right bundle branch block with atrial fibrillation with a more rapid rate; however by telemetry, it looks like he is better rate controlled this time. IMAGING: Shows a chest x-ray that shows no acute disease. LABORATORIES: Show a sodium 138, potassium 4.5, chloride and bicarb 103 and 18 respectively. BUN and creatinine 38 and 1.99. Troponin is in the same range around 0.07. Hematology shows a white count 5.1, H and H 11.8, 36.6, platelets of 103,000. Sed rate elevated at 45. Procalcitonin also elevated. TSH 0.786 and free T4 at 0.85. CURRENT MEDICATIONS: Include: 1. pradaxa. 2. Diltiazem 180 b.i.d. 3. Prednisone 5 daily. 4. Pradaxa 150 b.i.d. 5. Vancomycin. 6. Lisinopril. MICROBIOLOGY: Shows no growth after 24 hours. An echocardiogram is pending at this time. I did look briefly at the images. It appears that LV systolic function is preserved. IMPRESSION: The patient came in primarily with fevers, chills or sweats. Blood cultures have shown no growth thus far. He does have elevated sed rate as well as an elevated procalcitonin. Blood cultures pending. He is being treated with antibiotics. He did have some increased shortness of breath upon presentation. This had been related to the increased atrial fibrillation rate. He is better rate controlled at this time. Denies any increased shortness of breath, chest pain, chest pressure. He tells me that he has had workup at [facility] with stress testing not too long ago. He tells me that it was okay. His troponin is mildly elevated and he denies chest pain or chest pressure. He tells me that there has been no explanation as to why he has increased shortness of breath, although he does admit to being relatively inactive. PLAN: 1. I would add an aspirin to his medications as long as this is okay with the rest of his treatment. 2. I am going to request the records from [facility] including a stress test and any other records that may have been obtained. 3. It appears that he does have an infection as he seems to be responding to the antibiotics. I will review his current studies and outside studies and determine if any additional workup is required at this time. I spent 40 minutes speaking with the patient regarding his current presentation and his past cardiac workup. I also examined him and communicated my recommendations to the hospitalist. PEGGY
[2017-03-19] MEDS: predniSONE 5 mg Tablet PO SCH (08:27)
[2017-03-19] MEDS: Diltiazem CD 180 mg ER24 Capsule PO SCH ×2 (08:27→19:39)
[2017-03-19] MEDS: Dabigatran 150 mg Capsule PO SCH ×2 (08:27→19:38)
[2017-03-19] MEDS: Piperacillin-Tazo 3.375 Gm Inj 3.375 GM in Dextrose 5% Minibag Plus 50 ML IV SCH ×2 (08:27→19:38)
[2017-03-19] MEDS: Sodium Chloride LOK Flush 10 mL Syringe IVFLUSH SCH ×3 (08:30→21:20)
[2017-03-19] MEDS: 0.9% Sodium Chloride 1,000 ML IV SCH (08:31)
--- NOTE | 2017-03-19 10:31 | PCM.PNMED ---
Subjective Date of Service Mar 19, 2017 Subjective Follow up for fever, chills, shortness of breath No significant interval changes. No fever, no chills, no chest pain. Exam Vital Signs Vital Sign - Last Date Time Temp Pulse Resp B/P Pulse Ox O2 Delivery O2 Flow Rate FiO2 03/19/17 08:00 36.8 85 20 141/65 96 Room Air 03/18/17 16:09 2.00 Intake and Output 03/18/17 03/18/17 03/19/17 Cumulative From/Thru 15:00 23:00 07:00 03/16/17 17:39 - 03/19/17 06:23 Intake Total 1224 ml 2078 ml 1115 ml 8829 ml Output Total 750 ml 2150 ml Balance 1224 ml 1328 ml 1115 ml 6679 ml Intake Oral 1092 ml 400 ml 3332 ml IV Total 1224 ml 986 ml 715 ml 5497 ml Output Urine Total 750 ml 2150 ml # Voids 2 1 8 # Bowel Movements 1 0 3 Exam Gen : Morbidly obese male. In bed comfortably. No acute distress HEENT : sclerae anicteric Neck : Trachea is midline, no JVD Chest : No deformity, Normal respiratory efforts, no use of accessory muscles Heart : S1, S2 regular rate and rhythm, no gallop, no murmur. Lungs: Decreased air entry bilaterally,, no wheezing, no crackles Abdomen: Obese abdomen, difficult by patient due to body habitus. Bowel sounds audible carotid Extremity: No edema, no cyanosis Skin: No rash, no ulcers. Neuro : Non focal . AAO x 3 IVs and Medications Medications Reviewed: Medications were reviewed in detail Lab and Diagnostics Result Diagram: 03/18/17 1557 03/19/17 0328 X-Rays, CTs and MRIs Chest x-ray on 03/16/2017: IMPRESSION: No acute disease is seen a semiupright portable chest. Dictated by: Kerwin Forbes M.D. on 03/16/2017 at 18:28 Assessment & Plan This is a 66-year-old male with past medical history significant for atrial fibrillation on pradaxa who presents today for shortness of breath and chills. On admit the patient did meet systemic inflammatory response syndrome criteria with a temperature of 38.7, pulse 113, respiratory rate of 30. He also had a lactic acid of 3.5. This does seem to be a infectious origin although a definite source has not been identified. Potential sources include the bite tana on his right hand and blister on his abdomen from cooking oysters. Doubt vibrio as he has no nausea, vomiting, diarrhea. He is on doxycycline. None of these areas look acutely infected. The patient also has orthopnea and worsening lower external swelling. His proBNP is 3998. Therefore the could be a component of heart failure as well. Pulmonary embolus is in differential but this is doubtful as he is been fairly consistent with his pradaxa other than missing 1 dose this morning. 1. SIRS : Stable. No evidence of sepsis -Continue broad-spectrum antibiotics with Zosyn, vancomycin and doxycycline. - No fever, no chill in the past 48hours . - Seen by ID and agrees with the current regimen . - Wound culture ( Blister in lower abdomen is pending) 2. Elevated troponin. -No angina or chest pain, but patient has been having shortness of breath which may be an equivalent of angina, though elevated troponin may be due to renal failure as well -Will monitor troponin level and consult cardiology. -Echocardiography shows normal EF . -Cardiology consulted case discussed , Patient will likely need ischemic work up but that is being deferred by cardiology for a later time as outpatient . - Start Asa 81 mg Po daily 3. Elevated ProBNP on admit was 3998 -He has orthopnea and lower external swelling. 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 Patient has underlying COPD as well . He is a heavy smoker with an over 50 years pack - Sleep study to be scheduled as outpatient - Echocardiography shows normal EF 4. Elevated glucose -Patient's glucose on admit was 111. A1x 5.9 - Continue diabetic diet 4. Prolonged QT, present on admission, ongoing: -QTC of 499 on admit -Patient telemetry. -Avoid QTC prolonging medications. 5. Acute kidney injury, present on admission, ongoing: - could be pre renal azotemia with hypovolemia -Patient unaware of any previous kidney problem. - Creatinine 1. today . - kidney US is negative : Grossly normal appearance the kidneys bilaterally. -Will obtain medical record at [facility] and consider nephrology consult 6. Hypomagnesemia, present admission, ongoing: -Replace prn. 7. Atrial fibrillation, present remission, ongoing: -Patient is currently in atrial fibrillation. His rate has been fluctuating. -We will continue to monitor. -Anticoagulated with Pradaxa. 8.- Thrombocytopenia, present on admission, ongoing: -Platelets count range is 100-120 -Unknown chronicity. - Platelet count is stable 9. Tobacco abuse ; Cessation discussed , nicotine patch offered . Patient shows little to no incentive to quit . Hemodynamically and clinically stable. Afebrile on the current antibiotic. ID recommendation appreciated Cardiology consult and recommendation noted. Monitor renal function. Obtain medical record from [facility] to check baseline creatinine. Kidney US is negative Patient wants to go home and have any further work up as outpatient Discharge anticipated within 24-48 hours Time spent 35 minutes Genaro Castro MD Mar 19, 2017 10:30
[2017-03-19] MEDS: Vancomycin Inj 2,000 MG in 0.9% Sodium Chloride 500 ML IV SCH (14:05)
--- NOTE | 2017-03-19 18:27 | PROG NOTE ---
[address] [address] PROGRESS NOTE PATIENT: XIAO ALEXIS : 1950 MR#: [id number] ADMIT: 03/16/2017 JOB ID: [id number] DATE: 03/19/2017 CHIEF COMPLAINT: Followup of patient with atrial fibrillation, some shortness of breath, baseline shortness of breath and borderline elevated troponin. SUBJECTIVE: The patient says he feels fine. He denies increased shortness of breath. He denies chest pain or chest pressure. As noted labs showed mildly elevated troponins. The patient has not had acute EKG changes, chest pain, chest pressure. He does elevate have elevated creatinine and Renal is now seeing him for that. In the interim, he has not had any problems with fevers or chills. He has labs pending. One blood culture has apparently grown gram-positive rods. I am sure ID will be following up on that. Also in the interim, I was able to obtain records from [facility] which showed an echo which showed normal LV systolic function, as ours did, and a stress test that showed a moderate-sized area of possible mild lateral wall ischemia. He did see Dr. Lamb for this, and the plan was to follow him and treat him conservatively. He does have a followup with Dr. Lamb in about 2-3 months. Again, he denies chest pain, chest pressure. His predominant problem is shortness of breath with exertion. PHYSICAL EXAMINATION: Blood pressure is 121/56, heart rate 54. Sats are 96% on room air. General: In no acute distress. Speaking in full sentences without apparent shortness of breath. Head and neck exam: Normocephalic, atraumatic. Heart exam: Irregular without obvious murmurs, gallops, rubs appreciated. Lungs clear anteriorly. Abdomen soft. Extremities: Warm. CURRENT MEDICATIONS: Include: 1. Vancomycin. 2. Sodium chloride. 3. Diltiazem 180 b.i.d. 4. Prednisone 5 daily. 5. Pradaxa 150 b.i.d. 6. Pip/tazo. 7. Lisinopril. 8. Other PRNs. LABS: Show a sodium 137, potassium 4.4, chloride and bicarb 103 and 20, respectively. BUN and creatinine 40 and 1.83. Hematology shows white count 4.7, H and H 10.7, 33.3, platelets 102,000. IMAGING: A retroperitoneal ultrasound shows grossly normal appearance of the kidneys bilaterally. IMPRESSION: The patient denies any acute cardiac symptoms. I think his increased shortness of breath was likely related to increased atrial fib rate and this could have also led to the somewhat elevated troponin. He may have coronary disease based upon a stress test, but he denies increased chest pain or chest pressure. He does have a radio operator ground who has elected to follow him and treat him conservatively. The patient has a followup with Dr. Lamb in the upcoming months. PLAN: 1. I would continue with his current cardiac medications. I was going to say we should add an aspirin, but I think we are not giving it to him because of the Pradaxa. However, this could still be considered given the presumption of coronary disease. 2. I will leave the rest of the assessment to the to ID team and the hospital team. Unless there are any new developments in this patient's care, I will sign off for now. I spent 25 minutes reviewing the patient's old records, reviewing his current labs, speaking with the patient and discussing with the hospitalist PEGGY
[2017-03-19] MEDS: Vancomycin Dose per Pharmacist XX SCH (19:21)
--- NOTE | 2017-03-19 21:47 | CONS ---
[address] [address] CONSULTATION REPORT PATIENT: XIAO ALEXIS : 1950 MR#: [id number] ADMIT: 03/16/2017 JOB ID: [id number] DATE OF SERVICE: REQUESTING PHYSICIAN: Genaro Castro MD REASON FOR CONSULTATION: Management of abnormal kidney function. COMPLAINT: Shortness of breath. PRESENT ILLNESS: This is a very pleasant, 66-year-old, male with significant past medical history of hypertension, obesity, recurrent ear infections, gout, chronic atrial fibrillation, who presented to the hospital with a complaint of shortness of breath. The patient started having shortness of breath or chills three days prior to the admission. The symptoms got worse during exertion. The patient reported history of dog bite to his right hand a couple of weeks ago and that was completely healed. Last week, he had a small burn on his abdomen while cooking oysters. He got burned from the hot oyster juice. That area became blister-like lesions and now started to heal. The patient was admitted on March 16, 2017. He was evaluated by Infectious Disease physician. Blood work showed WBC of 8.9, ESR 45. Procalcitonin of 2.18. X-ray did not show any active infiltrates. The patient had a temperature initially with a T-max of 38.7, heart rate of 113, respiratory rate of 30. SIRS was diagnosed. However, we have not had any clear source of infection. He was started on broad-spectrum IV antibiotics including vancomycin, Zosyn, and oral doxycycline. The patient was also evaluated by preform machine operator given history of elevation of troponin and proBNP. Echocardiogram was done. Showed normal left ventricular size with [id number] concentric hypertrophy and normal systolic function with estimated ejection fraction of 55% to 60%, grossly normal right ventricular size and systolic function, mild to moderate aortic insufficiency. In terms of his kidney function, his initial BUN and creatinine were 32 and 2.14 respectively. The patient also received IV fluid with normal saline 75 cc/hour. His current BUN and creatinine were 40 and 1.83, respectively. The patient reported that he was evaluated by telecommunications equipment installer in [facility]. He is not able to recall his doctor's name. He stated that the last visit was about six months ago. He is not aware of the severity of his kidney level. He is not able to recall the diagnosis of the kidney issue he has. The patient denied history of vasculitis or nephrolithiasis. He wants to know why he takes NSAIDs. He denied history of dysuria or hematuria. He typically urinates one time at night. He reported that he has chronic history of gout that was diagnosed at least 20 years. He claimed that it is hereditary. His mother and his nephew also suffered from the gout. The patient has been on allopurinol and colchicine. So far, he has not had any major gout attack. Interestingly, he does have history of chronic bilateral ear infections in which he underwent bilateral pressure equalizer tube insertions. He also had history of right mastoid surgery. According to his medication list, he takes prednisone 5 mg once a day. When asked what the indication for this medication, he is not certain about it. However, he believes it is for his chronic ear infections. PAST MEDICAL HISTORY: 1. Chronic atrial fibrillation. 2. Morbid obesity. 3. Hypertension. 4. Gout. 5. Recurrent ear infection. PAST SURGICAL HISTORY: Status post pressure equalizer tube insertion bilaterally. Right mastoid surgery. FAMILY HISTORY: No kidney disease in the family. Positive for gout in his mother and his nephew. SOCIAL HISTORY: He smokes cigarettes every day. He drinks occasionally. REVIEW OF SYSTEMS: Are as per HPI. Fourteen-point review of system was performed. ALLERGIES: No known drug allergies. MEDICATIONS: Home medication include allopurinol, colchicine, Pradaxa, diltiazem, lisinopril, prednisone. PHYSICAL EXAMINATION: Vitals: Temperature 36.5, pulse 54, respiratory rate 20, blood pressure 125/56, O2 sat 96% on room air. General appearance: Awake, alert, oriented x3. In no acute distress. HEENT : No pallor. No jaundice. No JVD. No lymphadenopathy. No thyroid enlargement. Heart: Irregular rhythm. Normal S1, S2. Distant heart sounds. Lungs: Equal breath sounds bilaterally. Poor air entry. No wheezing. No rhonchi. Abdomen: Soft, obese, active bowel sounds. Nontender. Nondistended. No hepatosplenomegaly. Extremities: No significant edema noted. No excoriation. No bruises. LABORATORY: WBC 4.7, hemoglobin 10.7, platelets 102. ESR 45. Sodium 137, potassium 4.4, chloride 103, bicarb 22, BUN 40, creatinine 1.83. Vancomycin level 14.7. UA: Specific gravity 1.025, pH 5.0, protein 300, large occult blood, 0-2 RBCs, 0-5 WBCs. ASSESSMENT: 1. Acute kidney injury, unknown baseline serum creatinine. The patient was evaluated by a telecommunications equipment installer in [facility]. He is not aware of his severity of kidney disease. Of note, patient has history of chronic gouty arthritis. The etiology of chronic kidney disease could be related to hypertensive nephrosclerosis or urate nephropathy. Given history of recurrent infections and proteinuria, I would like to rule out ANCA-related vasculitis. The etiology of acute kidney injury at this time could be related to acute tubular necrosis in the setting of ongoing infection. I would like to repeat his UA, order a urine protein/creatinine ratio, obtain the old records from his telecommunications equipment installer and his primary care physician. Will order complement 3, complement 4. Check ANCA panel. Check hepatitis B/C and HIV. 2. Systemic inflammatory response syndrome. 3. Shortness of breath. 4. Elevation of proBNP. 5. Questionable diastolic heart failure. 6. Chronic atrial fibrillation. 7. Morbid obesity. 8. Tobacco abuse. Thank you for allowing me to participate in the care of your patient. We will monitor along with you. PEGGY
[2017-03-20] VITALS (8 sets, daily range): BP systolic 106–131; BP diastolic 62–75; PULSE 70–86; RESP 18–24; O2SAT 95–99
[2017-03-20 04:40] LABS: Magnesium 1.6 mg/dL (1.6-2.6); Phosphorus 3.8 mg/dL (2.5-4.9)
[2017-03-20] MEDS: Dabigatran 150 mg Capsule PO SCH ×2 (07:21→21:05)
[2017-03-20] MEDS: Piperacillin-Tazo 3.375 Gm Inj 3.375 GM in Dextrose 5% Minibag Plus 50 ML IV SCH ×2 (07:21→21:04)
[2017-03-20] MEDS: predniSONE 5 mg Tablet PO SCH (07:22)
[2017-03-20] MEDS: Sodium Chloride LOK Flush 10 mL Syringe IVFLUSH SCH ×2 (07:22→16:30)
[2017-03-20] MEDS: Diltiazem CD 180 mg ER24 Capsule PO SCH ×2 (07:22→21:06)
[2017-03-20] MEDS: Vancomycin Dose per Pharmacist XX SCH (08:30)
--- NOTE | 2017-03-20 10:28 | PROG NOTE ---
[address] [address] PROGRESS NOTE PATIENT: XIAO ALEXIS : 1950 MR#: [id number] ADMIT: 03/16/2017 JOB ID: [id number] DATE: 03/20/2017 REASON FOR FOLLOWUP: Unexplained systemic infection. INTERVAL HISTORY: The patient tells me that over the past 2 days he has felt steadily better. In general he is much improved, but he did have an episode of chest pressure and heaviness with some mild shortness of breath that lasted about 10 minutes this morning and then spontaneously resolved. At this point he has no fevers, chills, or sweats. No headache. No significant cough or shortness of breath. No abdominal pain. No nausea, vomiting, or diarrhea. The burn he had suffered from the hot oyster juice on his left anterior abdomen is almost healed, and no other skin lesions have appeared. PHYSICAL EXAMINATION: Reveals an afebrile, morbidly obese gentleman in no acute distress. Temp 36.6 recall that when he came in 5 days ago he was febrile for about 24 hours with fairly significant fevers and he has been afebrile now for 4 days. Pulse 78, respiratory rate 22, blood pressure 106/71. He is saturating well on room air. He is in no acute distress. He is awake, alert and making jokes. Oral cavity negative except poor dentition. Lungs relatively clear. Cardiac tones irregular rate and rhythm, and he is off the monitor right now. He does have a systolic murmur as before about 11/22. His abdomen is very obese, soft, and nontender. LABORATORIES: Include white count 4700, platelet count 102. Creatinine 1.54. His liver function tests are normal. HIV is pending. Streptozyme negative. Hepatitis C negative. Microstudies include 1 of 4 blood cultures which grew diphtheroid and was a contaminant. Aspirate that I performed on Tuesday from his abdominal wall where he had the bleb from the burn is culture negative and had no white cells or organisms on Gram stain. MRSA screen was negative. IMAGING: Includes the initial chest x-ray, which was clear and a retroperitoneal ultrasound, ordered by the renal client service consultant which was normal. IMPRESSION: This is a confusing case of a gentleman who had a dog bite a couple weeks ago and then more recently last weekend suffered a burn when hot oyster juice from a grill hit his abdomen. Shortly thereafter he developed fevers, chills, sweats, nausea, vomiting, and weakness. The source of this apparent infection is unclear though it seems to be resolving. I was concerned about streptococcal infection arising from the burn as one possibility. The patient did not eat or touch any raw oysters and was only involved in them after they were super heated on the grill, so I do not think Vibrio is likely here. In any event, he is much improved. RECOMMENDATIONS: 1. Discontinue vanco as there is no reason whatsoever to suspect methicillin resistant Staphylococcus aureus here. 2. Will continue with oral doxy as well as IV Zosyn for another day or so. 3. Will check a procalcitonin in the morning as this had been extremely elevated earlier in his hospital stay and just see which way that is going. 4. Will continue to follow this interesting patient with you.
[2017-03-20] MEDS ORDERED: Vancomycin Serum Trough XX ONE (13:30)
--- NOTE | 2017-03-20 13:58 | PCM.PNMED ---
Subjective Date of Service Mar 20, 2017 Subjective Patient seen and examined at bedside . No significant interval changes. No new complains Afebrile overnight Exam Vital Signs Vital Sign - Last Date Time Temp Pulse Resp B/P Pulse Ox O2 Delivery O2 Flow Rate FiO2 03/20/17 12:51 36.5 70 20 106/62 95 Room Air 03/18/17 16:09 2.00 Intake and Output 03/19/17 03/19/17 03/20/17 Cumulative From/Thru 15:00 23:00 07:00 03/16/17 17:39 - 03/20/17 05:12 Intake Total 1822 ml 400 ml 09899 ml Output Total 100 ml 2250 ml Balance 1722 ml 400 ml 8801 ml Intake Oral 828 ml 400 ml 4560 ml IV Total 994 ml 6491 ml Output Urine Total 100 ml 2250 ml # Voids 3 4 15 # Bowel Movements 2 5 Exam Gen : Morbidly obese male. NAD HEENT : [place], sclerae anicteric Neck : Trachea is midline, no JVD Chest : Normal respiratory efforts, no use of accessory muscles Heart : S1, S2 regular rate and rhythm, no gallop, no murmur. Lungs: Decreased air entry bilaterally,, no wheezing Abdomen: Obese abdomen. Bowel sounds audible and normal all quadrant Extremity: No edema, no cyanosis Skin: No rash, no ulcers. Neuro : AAO x 3. Non focal IVs and Medications Medications Reviewed: Medications were reviewed in detail Lab and Diagnostics Result Diagram: 03/18/17 1557 03/20/17 0352 X-Rays, CTs and MRIs Chest x-ray on 03/16/2017: IMPRESSION: No acute disease is seen a semiupright portable chest. Dictated by: Kerwin Forbes M.D. on 03/16/2017 at 18:28 Assessment & Plan This is a 66-year-old male with past medical history significant for atrial fibrillation on pradaxa who presents today for shortness of breath and chills. On admit the patient did meet systemic inflammatory response syndrome criteria with a temperature of 38.7, pulse 113, respiratory rate of 30. He also had a lactic acid of 3.5. This does seem to be a infectious origin although a definite source has not been identified. Potential sources include the bite tana on his right hand and blister on his abdomen from cooking oysters. Doubt vibrio as he has no nausea, vomiting, diarrhea. He is on doxycycline. None of these areas look acutely infected. The patient also has orthopnea and worsening lower external swelling. His proBNP is 3998. Therefore the could be a component of heart failure as well. Pulmonary embolus is in differential but this is doubtful as he is been fairly consistent with his pradaxa other than missing 1 dose this morning. 1. SIRS : Stable. No evidence of sepsis - No fever, no chill in the past 48hours . - Change made on antibiotics by ID noted and appreciated . - To continue Zosyn and doxycycline for another day . Repeat procalcitonin in am 2. Elevated troponin. -No angina or chest pain, but patient has been having shortness of breath which may be an equivalent of angina, though elevated troponin may be due to renal failure as well -Will monitor troponin level and consult cardiology. -Echocardiography shows normal EF . -Cardiology consulted case discussed , Patient will likely need ischemic work up but that is being deferred by cardiology for a later time as outpatient . - Start Asa 81 mg Po daily 3. Elevated ProBNP on admit was 3998 -He has orthopnea and lower external swelling. 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 Patient has underlying COPD as well . He is a heavy smoker with an over 50 years pack - Sleep study to be scheduled as outpatient - Echocardiography shows normal EF 4. Elevated glucose -Patient's glucose on admit was 111. A1x 5.9 - Continue diabetic diet 4. Prolonged QT, present on admission, ongoing: -QTC of 499 on admit -Patient telemetry. -Avoid QTC prolonging medications. 5. Acute kidney injury, present on admission, ongoing: Improving . Creatinine 1.5 today Nephrology following 6. Hypomagnesemia, present admission, ongoing: -Replace prn. 7. Atrial fibrillation, present remission, ongoing: -Patient is currently in atrial fibrillation. His rate has been fluctuating. -We will continue to monitor. -Anticoagulated with Pradaxa. 8.- Thrombocytopenia, present on admission, ongoing: -Platelets count range is 100-120 -Unknown chronicity. - Platelet count is stable 9. Tobacco abuse ; Cessation discussed , nicotine patch offered . Patient shows little to no incentive to quit . Patient is doing quite better today. He remains afebrile. Blood culture grew gram positive naeem ( Diphetroid Isolated from aerobic bottle) likely a contaminant . Repeat blood culture in process Change made on antibiotics by ID noted and appreciated . - To continue Zosyn and doxycycline for another day . Repeat procalcitonin in am - Discharge likely within 24-48 hours . -PT evaluation Time spent 35 minutes Genaro Castro MD Mar 20, 2017 13:58
--- NOTE | 2017-03-20 15:23 | PCM.PNNEPH ---
Subjective Date of Service Mar 20, 2017 Subjective is at bedside. She stated that pt has not been evaluated by water and gas helper. He sees only his PCP. He is feeling better today. No fever/chills. Chest pressure noted in am and spontaneously went away. Exam Vital Signs Vital Sign - Last Date Time Temp Pulse Resp B/P Pulse Ox O2 Delivery O2 Flow Rate FiO2 03/20/17 12:51 36.5 70 20 106/62 95 Room Air 03/18/17 16:09 2.00 Intake and Output 03/19/17 03/19/17 03/20/17 Cumulative From/Thru 15:00 23:00 07:00 03/16/17 17:39 - 03/20/17 05:12 Intake Total 1822 ml 400 ml 21809 ml Output Total 100 ml 2250 ml Balance 1722 ml 400 ml 8801 ml Intake Oral 828 ml 400 ml 4560 ml IV Total 994 ml 6491 ml Output Urine Total 100 ml 2250 ml # Voids 3 4 15 # Bowel Movements 2 5 Exam HEENT : No pallor. No jaundice. No JVD. No lymphadenopathy. No thyroid enlargement. Heart: Irregular rhythm. Normal S1, S2. Distant heart sounds. Lungs: Equal breath sounds bilaterally. Poor air entry. No wheezing. No rhonchi. Abdomen: Soft, obese, active bowel sounds. Nontender. Nondistended. No hepatosplenomegaly. Extremities: No significant edema noted. No excoriation. No bruises. Lab and Diagnostics Result Diagram: 03/18/17 1557 03/20/17 0352 X-Rays, CTs and MRIs Chest x-ray on 03/16/2017: IMPRESSION: No acute disease is seen a semiupright portable chest. Dictated by: Kerwin Forbes M.D. on 03/16/2017 at 18:28 Plan Impression ASSESSMENT: 1. Acute kidney injury, unknown baseline serum creatinine. - JAYME likely due to ATN (SIRS, unclear source of infection ? ear infection, ? strep infection form skin burn, improving with IV abx and PO doxy, seen by ID). - May have some degree of CKD ( possible hypertensive nephrosclerosis/urate nephropathy). - (+) proteinuria, hematuria, recurrent ear infection, needs to rule out ANCA related vasculitis. 2. Systemic inflammatory response syndrome. 3. Shortness of breath. 4. Elevation of proBNP. 5. Questionable diastolic heart failure. 6. Chronic atrial fibrillation. 7. Morbid obesity, ? CELESTINO. 8. Tobacco abuse. Plan: D/c IVF. Serologies pending. Obtain medical record/previous BMP from his PCP. Avoid nephrotoxins. Renally dose meds. Imani East MD Mar 20, 2017 15:23
[2017-03-20 22:26] LABS: APPEARANCE,URINE CLEAR (CLEAR,HAZY); COLOR,URINE YELLOW (YELLOW)
[2017-03-20 22:27] LABS: OCCULT BLOOD,URINE TRACE (NEGATIVE); PH,URINE 5.5 (5.0-8.0); UROBILINOGEN,URINE NORMAL (NORMAL)
[2017-03-21] VITALS (8 sets, daily range): BP systolic 132–159; BP diastolic 64–94; PULSE 53–98; RESP 18–24; O2SAT 91–98
[2017-03-21] MEDS: Sodium Chloride LOK Flush 10 mL Syringe IVFLUSH SCH ×4 (00:30→23:58)
[2017-03-21] MEDS: Dabigatran 150 mg Capsule PO SCH ×2 (08:17→20:47)
[2017-03-21] MEDS: Diltiazem CD 180 mg ER24 Capsule PO SCH ×2 (08:17→20:45)
[2017-03-21] MEDS: Piperacillin-Tazo 3.375 Gm Inj 3.375 GM in Dextrose 5% Minibag Plus 50 ML IV SCH ×2 (08:17→20:44)
[2017-03-21] MEDS: predniSONE 5 mg Tablet PO SCH (08:17)
--- NOTE | 2017-03-21 13:33 | PCM.PNNEPH ---
Subjective Date of Service Mar 21, 2017 Subjective Patient reportedly had a restful night with no acute events. This morning he states that he is somewhat frustrated, stating that he still does not understand why he is short of breath which is why he is here. He states that it seems like a lot of tests have been done to look at his heart and kidneys and yet nobody seems to know what is going on. He denies chest pain or palpitations , fever, chills, dysuria, increased urinary frequency, nausea, vomiting, diarrhea or constipation. Exam Vital Signs Vital Sign - Last Date Time Temp Pulse Resp B/P Pulse Ox O2 Delivery O2 Flow Rate FiO2 03/21/17 11:54 36.7 69 19 133/64 94 Room Air 03/18/17 16:09 2.00 Intake and Output 03/20/17 03/20/17 03/21/17 Cumulative From/Thru 15:00 23:00 07:00 03/16/17 17:39 - 03/21/17 06:53 Intake Total 1065 ml 533 ml 61304 ml Output Total 800 ml 3050 ml Balance 1065 ml -267 ml 9599 ml Intake Oral 720 ml 400 ml 5680 ml IV Total 345 ml 133 ml 6969 ml Output Urine Total 800 ml 3050 ml # Voids 2 17 # Bowel Movements 0 5 Exam General: Obese, elderly male sitting up in bed in no acute distress, appropriately interactive HEENT: Normocephalic, atraumatic, PERRLA, no scleral icterus, mucosa moist/ pink. Neck: Supple with full range of motion. No JVD, lymphadenopathy or bruits. Cardiovascular: Heart tones diminished, irregular rate and rhythm with 2/6 systolic murmur Pulmonary: Clear to auscultation bilaterally with no crackles, wheezes, or rhonchi. Abdomen: Soft, obese, nontender, nondistended, no hepatosplenomegaly or masses appreciated. Bowel tones present. Extremities: No clubbing, cyanosis, edema, or lymphadenopathy appreciated. Skin: Warm, dry, normal texture and turgor with no rashes or ulcerations. Neurological: CN II-XII grossly intact, no focal motor or sensory deficit. No known gait impairment. Psychiatric: Normal mood and affect. Alert and oriented to person, place, and time IVs and Medications Medications Reviewed: Medications were reviewed in detail Lab and Diagnostics Laboratory Tests Test 03/20/17 21:50 03/21/17 03:09 Urine Color Yellow (YELLOW) Urine Appearance Clear (CLEAR,HAZY) Urine pH 5.5 (5.0-8.0) Urine Specific [place] 1.020 (1.003-1.035) Urine Protein 100mg/dL (NEG,TRACE) Urine Glucose (UA) Negativemg/dL (NEGATIVE) Urine Ketones Negativemg/dL (NEGATIVE) Urine Occult Blood Trace (NEGATIVE) Urine Nitrite Negative (NEGATIVE) Urine Bilirubin Negative (NEGATIVE) Urine Urobilinogen Normalmg/dL (NORMAL) Urine Leukocyte Esterase Negative (NEGATIVE) Urine RBC 3-10/hpf (0-2) Urine WBC 0-5/hpf (0-5) Urine Epithelial Cells Few/hpf (NONE-MOD) Urine Crystals None seen (NONE SEEN) Urine Bacteria None/hpf (NONE-FEW) Urine Hyaline Casts None/lpf (NONE) Urine Granular Casts None seen (NONE SEEN) Urine Waxy Casts None seen (NONE SEEN) Urine Red Blood Cell Casts None seen (NONE SEEN) Urine White Blood Cell Casts None seen (NONE SEEN) Urine Mucus None seen (None Seen) Urine Trichomonas None seen (NONE SEEN) Urine Yeast None (NONE SEEN) Urine Culture Reflexed Not indicated Urine Random Creatinine 140mg/dL (22-328) Urine Random Total Protein 76mg/dL (0-15) Sodium Level 141mEq/L (134-144) Potassium Level 4.9mEq/L (3.5-5.2) Chloride Level 106mEq/L (97-108) Carbon Dioxide Level 18mmol/L (18-29) Blood Urea Nitrogen 35mg/dL (8-27) Creatinine 1.59mg/dL (0.76-1.27) Estimat Glomerular Filtration Rate 47mL/min (>59) Glucose Level 120mg/dL (60-99) Calcium Level 9.0mg/dL (8.5-10.1) Procalcitonin 0.70ng/mL (0.00-0.08) Microbiology 03/16/17 Blood Culture - 10/20 positive; likely contaminate. 03/18/17 MRSA (PCR) - Negative 03/20/17 Eosinophil Smear (VALENCIA) - Negative Result Diagram: 03/18/17 1557 03/21/17 0309 X-Rays, CTs and MRIs Chest x-ray on 03/16/2017: IMPRESSION: No acute disease is seen a semiupright portable chest. Dictated by: Kerwin Forbes M.D. on 03/16/2017 at 18:28 Cardiac Echo Impressions (03/18/17) Echocardiogram Interpretation Summary 1. Normal left ventricular size with moderate to severe concentric hypertrophy and normal systolic function with an estimated EF of 55 to 60%. 2. Grossly normal right ventricular size and systolic function. The estimated RVSP is 39 mm Hg. 3. Mild to moderate aortic insufficiency. 4. Dilated ascending aorta (4.5 to 4.8 cm) Additional Diagnostics (03/18/17) US RENAL SONOGRAM IMPRESSION: 1. Grossly normal appearance the kidneys bilaterally. Interpreted and approved by: Oneida Ramos MD on 03/18/2017 at 16:36 Plan Impression 66-year-old male with a history of hypertension, obesity, recurrent ear infections, atrial fibrillation on warfarin and gout who presented with a complaint of shortness of breath for three days. He met SIRS criteria at presentation and was subsequently admitted for further evaluation and management of presumed infection with an elevated procalcitonin. Nephrology consulted for management of abnormal kidney function. 1. Acute kidney injury, unknown baseline serum creatinine. -Likely due to ATN with possibly some degree of CKD (hypertensive nephrosclerosis/urate nephropathy) -Renal function is improving. At presentation BUN and creatinine were 32 and 2.14 respectively. Today BUN 35, Cr 1.59 -Due to proteinuria, hematuria, recurrent ear infection will need to rule out ANCA related vasculitis. Serologies still pending. 2. Chronic atrial fibrillation. 3. Elevation of proBNP. 4. Possible diastolic heart failure. Echo on 03/18 showed an EF of 55-60% 5. Morbid obesity 6. Tobacco dependence Plan: Serologies pending. Avoid nephrotoxins. Renally dose meds. Lesa Talbert DO Mar 21, 2017 13:33
--- NOTE | 2017-03-21 16:01 | PCM.PNNEPH ---
Subjective Date of Service Mar 21, 2017 Subjective The patient is continuing to show some improvement. There is no urine output recorded so I am unsure as to his intake and output. He denies any further ear pain, chest pain, shortness of breath. His renal function shows a creatinine today of 1.59 which is about where it has been. His sodiums morning is 141, potassium 4.9, chloride 106, bicarbonate 18, BUN and creatinine were 35. Exam Vital Signs Vital Sign - Last Date Time Temp Pulse Resp B/P Pulse Ox O2 Delivery O2 Flow Rate FiO2 03/21/17 11:54 36.7 69 19 133/64 94 Room Air 03/18/17 16:09 2.00 Intake and Output 03/20/17 03/20/17 03/21/17 Cumulative From/Thru 15:00 23:00 07:00 03/16/17 17:39 - 03/21/17 06:53 Intake Total 1065 ml 533 ml 85600 ml Output Total 800 ml 3050 ml Balance 1065 ml -267 ml 9599 ml Intake Oral 720 ml 400 ml 5680 ml IV Total 345 ml 133 ml 6969 ml Output Urine Total 800 ml 3050 ml # Voids 2 17 # Bowel Movements 0 5 Exam Physical exam patient had is alert and oriented 3. Neck is supple without adenopathy, thyromegaly, or jugular venous distention. Lungs are clear to auscultation. Heart was regular and rhythmical and grossly normal to somewhat distant due to the patient's morbid obesity abdomen is quite distended and pendulous. There is no gross abnormalities noted nor is there any tenderness. Extremities showed some mild lower extremity edema which is pitting. Skin turgor is good and there is no evidence of any rashes. Lab and Diagnostics Result Diagram: 03/18/17 1557 03/21/17 0309 X-Rays, CTs and MRIs Chest x-ray on 03/16/2017: IMPRESSION: No acute disease is seen a semiupright portable chest. Dictated by: Kerwin Forbes M.D. on 03/16/2017 at 18:28 Cardiac Echo Impressions (03/18/17) Echocardiogram Interpretation Summary 1. Normal left ventricular size with moderate to severe concentric hypertrophy and normal systolic function with an estimated EF of 55 to 60%. 2. Grossly normal right ventricular size and systolic function. The estimated RVSP is 39 mm Hg. 3. Mild to moderate aortic insufficiency. 4. Dilated ascending aorta (4.5 to 4.8 cm) Additional Diagnostics (03/18/17) US RENAL SONOGRAM IMPRESSION: 1. Grossly normal appearance the kidneys bilaterally. Interpreted and approved by: Oneida Ramos MD on 03/18/2017 at 16:36 Plan Impression Impression #1 acute kidney injury which is resolving #2 chronic kidney disease stage III number for gout #5 metabolic syndrome #7 probable obstructive sleep apnea Condition #1 her to continue on his current medical therapy and would strongly urge him sleep evaluation as an outpatient basis. We need to continue to follow his lab. Romeo Auguste DO Mar 21, 2017 16:00
--- NOTE | 2017-03-21 16:20 | PCM.PNMED ---
Subjective Date of Service Mar 21, 2017 Subjective Patient seen and examined at bedside with assigned nurse . 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 Patient has no PC, no SOB, no lightheadedness, no dizziness . Afebrile Exam Vital Signs Vital Sign - Last Date Time Temp Pulse Resp B/P Pulse Ox O2 Delivery O2 Flow Rate FiO2 03/21/17 11:54 36.7 69 19 133/64 94 Room Air 03/18/17 16:09 2.00 Intake and Output 03/20/17 03/20/17 03/21/17 Cumulative From/Thru 15:00 23:00 07:00 03/16/17 17:39 - 03/21/17 06:53 Intake Total 1065 ml 533 ml 02651 ml Output Total 800 ml 3050 ml Balance 1065 ml -267 ml 9599 ml Intake Oral 720 ml 400 ml 5680 ml IV Total 345 ml 133 ml 6969 ml Output Urine Total 800 ml 3050 ml # Voids 2 17 # Bowel Movements 0 5 Exam Gen : Morbidly obese male. NAD . AAOx 3 HEENT : sclerae anicteric Neck : Trachea is midline, no JVD Chest : No deformity, Normal respiratory efforts, no use of accessory muscles Heart : S1, S2 irregular rate and rhythm, no gallop, no murmur. Lungs: Decreased air entry bilaterally,, no wheezing, no crackles Abdomen: Obese abdomen, difficult by patient due to body habitus. Bowel sounds audible carotid Extremity: No edema, no cyanosis Skin: No rash, no ulcers. Neuro : AAO x 3, no acute deficit IVs and Medications Medications Reviewed: Medications were reviewed in detail Lab and Diagnostics Result Diagram: 03/18/17 1557 03/21/17 0309 X-Rays, CTs and MRIs Chest x-ray on 03/16/2017: IMPRESSION: No acute disease is seen a semiupright portable chest. Dictated by: Kerwin Forbes M.D. on 03/16/2017 at 18:28 Cardiac Echo Impressions (03/18/17) Echocardiogram Interpretation Summary 1. Normal left ventricular size with moderate to severe concentric hypertrophy and normal systolic function with an estimated EF of 55 to 60%. 2. Grossly normal right ventricular size and systolic function. The estimated RVSP is 39 mm Hg. 3. Mild to moderate aortic insufficiency. 4. Dilated ascending aorta (4.5 to 4.8 cm) Additional Diagnostics (03/18/17) US RENAL SONOGRAM IMPRESSION: 1. Grossly normal appearance the kidneys bilaterally. Interpreted and approved by: Oneida Ramos MD on 03/18/2017 at 16:36 Assessment & Plan This is a 66-year-old male with past medical history significant for atrial fibrillation on pradaxa who presents today for shortness of breath and chills. On admit the patient did meet systemic inflammatory response syndrome criteria with a temperature of 38.7, pulse 113, respiratory rate of 30. He also had a lactic acid of 3.5. This does seem to be a infectious origin although a definite source has not been identified. Potential sources include the bite tana on his right hand and blister on his abdomen from cooking oysters. Doubt vibrio as he has no nausea, vomiting, diarrhea. He is on doxycycline. None of these areas look acutely infected. The patient also has orthopnea and worsening lower external swelling. His proBNP is 3998. Therefore the could be a component of heart failure as well. Pulmonary embolus is in differential but this is doubtful as he is been fairly consistent with his pradaxa other than missing 1 dose this morning. 1. SIRS : Stable. No evidence of sepsis -I will discontinue his antibiotic as of today - repeat culture in process . Diptheroid in anaerobic bottle likely a contaminant 2. Elevated troponin. -No angina or chest pain, but patient has been having shortness of breath which may be an equivalent of angina, though elevated troponin may be due to renal failure as well -Will monitor troponin level and consult cardiology. -Echocardiography shows normal EF . -Cardiology consulted case discussed , Patient will likely need ischemic work up but that is being deferred by cardiology for a later time as outpatient . - Start Asa 81 mg Po daily 3. Elevated ProBNP on admit was 3998 -He has orthopnea and lower external swelling. 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 Patient has underlying COPD as well . He is a heavy smoker with an over 50 years pack - Sleep study to be scheduled as outpatient - Echocardiography shows normal EF 4. Elevated glucose -Patient's glucose on admit was 111. A1x 5.9 - Continue diabetic diet 4. Prolonged QT, present on admission, ongoing: -QTC of 499 on admit -Patient telemetry. -Avoid QTC prolonging medications. 5. Acute kidney injury, present on admission, ongoing: Improving . Creatinine 1.5 and seems to plateaued now. Nephrology following . Serology pending. 6. Hypomagnesemia, present admission, ongoing: -Replace prn. 7. Atrial fibrillation, present remission, ongoing: -Patient is currently in atrial fibrillation. His rate has been fluctuating. -We will continue to monitor. -Anticoagulated with Pradaxa. -Patient had a run of bradycardia twice today including a 2 beats pause. He was asymptomatic .I doubt SSS. - Continue telemetry monitoring . Cardiology to be contacted. He was seen by cardiology initially but signed off . 8.- Thrombocytopenia, present on admission, ongoing: -Platelets count range is 100-120 -Unknown chronicity. - Platelet count is stable 9. Tobacco abuse ; Cessation discussed , nicotine patch offered . Patient shows little to no incentive to quit . Improved . Discharge for today aborted due to episode of bradycaria with HR around 40 and a beats pause, though asymptomatic Cardiology follow up . Continue telemetry monitoring for another 24 hours . Discontinue antibiotics . Hopefully home within 24-48 hours Time spent 25 minutes Genaro Castro MD Mar 21, 2017 16:20
--- NOTE | 2017-03-21 19:25 | PROG NOTE ---
[address] [address] PROGRESS NOTE PATIENT: XIAO ALEXIS : 1950 MR#: [id number] ADMIT: 03/16/2017 JOB ID: [id number] DATE: 03/21/2017 REASON FOR FOLLOWUP: Bacteremia with anaerobic organism in a patient who recently sustained a dog bite and a burn. INTERVAL HISTORY: The patient reports he is gradually feeling better. He denies fevers, chills, or sweats. He notes he has some shortness of breath which is being evaluated by the Cardiology team as well as some perhaps skipped beats in his heart rhythm, also under evaluation by Cardiology. He does not have abdominal pain. No nausea, vomiting, or diarrhea. PHYSICAL EXAMINATION: Reveals a morbidly obese gentleman lying supine in his hospital bed. Temp 36.7, pulse 69, respiratory rate 19, blood pressure 133/64. He is saturating quite well on room air and appears reasonably comfortable. Oral cavity without change. No pharyngitis or thrush. Lungs with decreased breath sounds at the bases. Cardiac tones are distant and regular. The abdomen is quite obese, soft and nontender. No new skin rashes noted. The burn he suffered from hot oyster juice on the left abdomen is healing up. LABORATORIES: Include white count 4700, platelet count 102,000, sed rate is 45, creatinine 1.59 which is considerably improved from 2.1 on admission. Procalcitonin is 0.7, down from 4.8 a few days ago and HIV is negative. Streptozyme also negative as is hep C. Micro studies include some blood cultures which turned positive on the 5th day for gram variable rods. In speaking to the micro department, these are lacy gram negative rods and they raise the possibility that these could be in the Campylobacter or perhaps Capnocytophaga group. The organisms are growing very poorly and they have been sent to [facility] for PCR studies. IMPRESSION: This is a fascinating case of a gentleman who had a dog bite a couple of weeks ago and then more recently was burned while cooking oysters on a grill. He then presented here with fairly nonspecific symptoms which included fevers, chills, sweats and nausea. It now appears that perhaps this bacteremia did arise from the dog bite if this turns out to be Capnocytophaga canimorsus which is a dog mouth pathogen. If this turns out to be some other organism, of course, it will take us in a different direction epidemiologically. RECOMMENDATIONS: 1. We await the identification of the organism. 2. As the patient is doing better, will continue along with our current antibiotics which include Zosyn and doxycyline. 3. This case discussed with Nursing and others.
--- NOTE | 2017-03-21 21:10 | PROG NOTE ---
[address] [address] PROGRESS NOTE PATIENT: XIAO ALEXIS : 1950 MR#: [id number] ADMIT: 03/16/2017 JOB ID: [id number] DATE: 03/21/2017 HISTORY OF PRESENT ILLNESS: The patient is a 66-year-old male admitted with a history of fevers and chills approximately a week ago. He had evidence of infection with an elevated sed rate and calcitonin. Blood cultures initially were no growth although recently show diphtheroids, perhaps a contaminant. I was asked to follow up on this patient today because of observed intermittent transient slowing of his heart rate into the 30s, occurring earlier this morning unassociated with any obvious symptoms or obvious vagal events. This gentleman has a long history of chronic atrial fibrillation dating back 8-10 years. He has been on 180 mg of long-acting diltiazem twice daily for that period of time and has not had any particular problems with syncope, near syncope, or bradycardia. His morning dose of diltiazem was held and this afternoon his heart rate is adequately controlled without any recurrent bradyarrhythmias. The patient is followed by Dr. Victorino Lamb, sap bi architect, who sees him periodically in [place]. Copies of his primary care records suggest that this gentleman had a heart catheterization in February of last year which was "negative." His atrial fibrillation was identified in 2008. Hypertension is also listed on his medical record sheet and what is notable about his echocardiogram in January 2007 is that he had marked ventricular hypertrophy with an atrial septum measuring at least 2.5 cm. His most recent echocardiogram continues to show moderately severe ventricular hypertrophy with normal left ventricular chamber size and systolic function. He also has evidence of aortic valve disease with chronic moderate aortic regurgitation. His aortic valve is sclerotic with reduced leaflet excursion consistent with mild aortic stenosis, and he also has chronic moderate aortic regurgitation. I do not see any obvious difference with his aortic valve compared with his exam from 2005. What is unexplained is his fairly severe hypertrophy which is less prominent on the current exam. This gentleman states that over the past year and a half he has been aware of progressive dyspnea. It is apparent from his outpatient records that he has been seen by Pulmonology and pulmonary function studies done demonstrate absence of significant obstructive pulmonary disease, although there is a modest amount of airway obstruction with a moderate decline in diffusion capacity noted as well. It does not appear that he has been treated with bronchodilator medications. He is morbidly obese and clearly a good part of his dyspnea relates to physical deconditioning since he is very sedentary at home. He denies any anginal chest discomfort. PHYSICAL EXAMINATION: Again, this gentleman is morbidly obese. His jugular venous pressure is moderately increased. Lung valadez demonstrate scattered expiratory wheezes across his anterior precordium in particular. Heart tones note a grade 3/6 mid-peaking systolic ejection murmur heard at the left upper sternal border radiating to the neck and a grade 2/6 holodiastolic decrescendo murmur along the left sternal border consistent with his aortic insufficiency. I do not hear a ventricular gallop. Abdomen is morbidly obese. Distal extremities show moderate pretibial and pedal edema at 2 to 3+. DISCUSSION: The etiology for this patient's transient bradyarrhythmia, I suspect, is just a transient vagal phenomenon perhaps related to his obstructive airway disease and breathing. I think it is reasonable to cut back some on his long-acting diltiazem, and I have reduced the dose to a total of 300 mg instead of 360 mg a day. Will continue to observe him on telemetry. He does not require pacemaker and is reassured by that. When he is ready to be discharged, he should be seen by Dr. Blayne Lamb for followup. In addition, despite his pulmonary function studies, he has audible wheezing and I think a trial of empiric bronchodilator therapy may be beneficial with his symptoms of fairly severe limiting exertional dyspnea.
[2017-03-22 00:06] VITALS: PULSE 86
[2017-03-22 05:13] VITALS: BP 140/79; PULSE 75; RESP 20; O2SAT 99
--- NOTE | 2017-03-22 08:46 | PROG NOTE ---
[address] [address] PROGRESS NOTE PATIENT: XIAO ALEXIS : 1950 MR#: [id number] ADMIT: 03/16/2017 JOB ID: [id number] DATE: 03/22/2017 INFECTIOUS DISEASE FOLLOW UP NOTE: REASON FOR FOLLOWUP: Bacteremia with organism which is yet to be identified. INTERVAL HISTORY: Overnight, the patient says he felt quite well. No fevers, chills, or sweats. No palpitations, chest pain or shortness of breath. No nausea, vomiting, diarrhea or dysuria. PHYSICAL EXAMINATION: Reveals an afebrile, obese gentleman lying supine in his hospital bed. Temperature 36.3, pulse 75, respiratory rate 20, blood pressure 140/79. He is saturating well on 2 L. He is in no acute distress. Examination of the mental status reveals it to be clear. His oral cavity is with some mild pharyngeal erythema which the patient does not notice or complained of. Lungs are clear. Cardiac tones distant but regular. Abdomen soft and nontender, quite obese. No evidence of cellulitis. LABORATORIES: Labs have not been done for days in terms of hematology but his creatinine is 1.46 which is improved over 2.14 when he came in. LFTs are normal. Hep C and HIV negative. Positive blood culture from admission remains unidentified as it is a rather strange appearing gram-negative naeem which raises the possibility of Capnocytophaga but we sent it to the [facility] for definitive identification. RECOMMENDATIONS: 1. Will continue with these antibiotics which included doxy and Zosyn until we have definitive identification of the organism from the [facility]. 2. Will continue to closely follow this patient with you until we have identification of the organism and a definitive antibiotic and length of therapy. 3. The situation was discussed in detail with the patient.
[2017-03-22 10:04] VITALS: BP 138/61; PULSE 70; RESP 18; O2SAT 94
[2017-03-22] MEDS: predniSONE 5 mg Tablet PO SCH (10:15)
[2017-03-22] MEDS: Dabigatran 150 mg Capsule PO SCH ×2 (10:15→21:11)
[2017-03-22] MEDS: Sodium Chloride LOK Flush 10 mL Syringe IVFLUSH SCH ×2 (10:15→16:10)
[2017-03-22] MEDS: Diltiazem CD 180 mg ER24 Capsule PO SCH ×2 (10:15→21:12)
[2017-03-22 12:10] VITALS: BP 116/74; PULSE 89; RESP 20; O2SAT 96
[2017-03-22 12:16] VITALS: BP 126/77; RESP 21; O2SAT 98
--- NOTE | 2017-03-22 13:15 | PCM.PNNEPH ---
Subjective Date of Service Mar 22, 2017 Subjective Bradycardia noted on telemetry with significant swing in heart rate, 140s with activity but no acute events. Patient reportedly asymptomatic with changes in heart rate and this morning states he is doing well. He denies chest pain or palpitations, fever, chills, dysuria, increased urinary frequency, nausea, vomiting, diarrhea or constipation. Exam Vital Signs Vital Sign - Last Date Time Temp Pulse Resp B/P Pulse Ox O2 Delivery O2 Flow Rate FiO2 03/22/17 12:16 36.4 21 126/77 98 Room Air 03/22/17 12:10 89 03/22/17 05:13 2.00 Intake and Output 03/21/17 03/21/17 03/22/17 Cumulative From/Thru 15:00 23:00 07:00 03/16/17 17:39 - 03/22/17 06:48 Intake Total 1465 ml 674 ml 04646 ml Output Total 3050 ml Balance 1465 ml 674 ml 84986 ml Intake Oral 1340 ml 674 ml 7694 ml IV Total 125 ml 7094 ml Output Urine Total 3050 ml # Voids 4 5 26 # Bowel Movements 5 Exam General: Obese, elderly male sitting up in bed in no acute distress, appropriately interactive HEENT: Normocephalic, atraumatic, PERRLA, no scleral icterus, mucosa moist/ pink. Neck: Supple with full range of motion. No JVD, lymphadenopathy or bruits. Cardiovascular: Heart tones diminished, irregular rate and rhythm with 2/6 systolic murmur Pulmonary: Clear to auscultation bilaterally with no crackles, wheezes, or rhonchi. Abdomen: Soft, obese, nontender, nondistended, no hepatosplenomegaly or masses appreciated. Bowel tones present. Extremities: No clubbing, cyanosis, edema, or lymphadenopathy appreciated. Skin: Warm, dry, normal texture and turgor with no rashes or ulcerations. Neurological: CN II-XII grossly intact, no focal motor or sensory deficit. No known gait impairment. Psychiatric: Normal mood and affect. Alert and oriented to person, place, and time IVs and Medications Medications Reviewed: Medications were reviewed in detail Lab and Diagnostics Laboratory Tests Test 03/21/17 23:59 03/22/17 04:15 Sodium Level 141mEq/L (134-144) Potassium Level 4.8mEq/L (3.5-5.2) Chloride Level 107mEq/L (97-108) Carbon Dioxide Level 21mmol/L (18-29) Blood Urea Nitrogen 33mg/dL (8-27) Creatinine 1.46mg/dL (0.76-1.27) Estimat Glomerular Filtration Rate 52mL/min (>59) Glucose Level 101mg/dL (60-99) Calcium Level 9.6mg/dL (8.5-10.1) Total Bilirubin 0.2mg/dL (0.0-1.2) Aspartate Amino Transf (AST/SGOT) 27U/L (0-50) Alanine Aminotransferase (ALT/SGPT) 42U/L (0-44) Alkaline Phosphatase 65U/L (25-160) Total Protein 5.5g/dL (6.4-8.4) Albumin 2.9g/dL (3.4-5.0) Result Diagram: 03/18/17 1557 03/22/17 0415 Microbiology 03/16/17 Blood Culture - 10/20 positive; likely contaminate. 03/18/17 MRSA (PCR) - Negative 03/20/17 Eosinophil Smear ([facility]ENCIA) - Negative X-Rays, CTs and MRIs Chest x-ray on 03/16/2017: IMPRESSION: No acute disease is seen a semiupright portable chest. Dictated by: Kerwin Forbes M.D. on 03/16/2017 at 18:28 Cardiac Echo Impressions (03/18/17) Echocardiogram Interpretation Summary 1. Normal left ventricular size with moderate to severe concentric hypertrophy and normal systolic function with an estimated EF of 55 to 60%. 2. Grossly normal right ventricular size and systolic function. The estimated RVSP is 39 mm Hg. 3. Mild to moderate aortic insufficiency. 4. Dilated ascending aorta (4.5 to 4.8 cm) Additional Diagnostics (03/18/17) US RENAL SONOGRAM IMPRESSION: 1. Grossly normal appearance the kidneys bilaterally. Interpreted and approved by: Oneida Ramos MD on 03/18/2017 at 16:36 Plan Impression 66-year-old male with a history of hypertension, obesity, recurrent ear infections, atrial fibrillation on warfarin and gout who presented with a complaint of shortness of breath for three days. He met SIRS criteria at presentation and was subsequently admitted for further evaluation and management of presumed infection with an elevated procalcitonin. Nephrology consulted for management of abnormal kidney function. 1. Acute kidney injury, unknown baseline serum creatinine. Resolving -Likely due to ATN in setting of baseline CKD stage III secondary to hypertensive nephrosclerosis -Renal function is improving. At presentation BUN and creatinine were 32 and 2.14 respectively. Today BUN 35, Cr 1.59 -Due to proteinuria, hematuria, recurrent ear infection will need to rule out ANCA related vasculitis. Serologies still pending. 2. Chronic atrial fibrillation 3. Possible diastolic heart failure. Echo on 03/18 showed an EF of 55-60% 4. Probable obstructive sleep apnea 5. Morbid obesity 6. Tobacco dependence Plan: -Serologies pending. -Avoid nephrotoxins. -Renally dose meds. -Continue current medical therapy -Recommend close outpatient followup with Nephrology in one month for alf management of chronic kidney disease. -Additionally, recommend close outpatient followup with PCP for evaluation of sleep apnea. -Nephrology will sign off at this time but remains available if needed. Lesa Talbert DO Mar 22, 2017 13:15
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
[2017-03-22 14:09] LABS: Antiproteinase 3 (PR-3) Abs <3.5 U/mL (0.0-3.5); Perinuclear (P-ANCA) <1:20 titer (Neg:<1:20)
[2017-03-22] MEDS: Piperacillin-Tazo 3.375 Gm Inj 3.375 GM in Dextrose 5% Minibag Plus 50 ML IV SCH ×2 (16:10→23:59)
[2017-03-22 20:00] VITALS: BP 150/71; PULSE 78; PULSE 79; RESP 24; O2SAT 97
[2017-03-22] MEDS ORDERED: Witch Hazel-Glycerin Pads TOPICAL PRN (20:10)
[2017-03-23] VITALS: BP 127/67; PULSE 88; RESP 18; O2SAT 88
[2017-03-23] MEDS: Sodium Chloride LOK Flush 10 mL Syringe IVFLUSH SCH ×2 (00:50→09:01)
[2017-03-23 04:00] VITALS: PULSE 88
[2017-03-23 04:12] VITALS: BP 116/55; PULSE 64; RESP 19; O2SAT 98
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
[2017-03-23] MEDS: Diltiazem CD 180 mg ER24 Capsule PO SCH (08:30)
[2017-03-23 08:49] VITALS: BP 124/60; PULSE 60; RESP 23; O2SAT 96
[2017-03-23] MEDS: Piperacillin-Tazo 3.375 Gm Inj 3.375 GM in Dextrose 5% Minibag Plus 50 ML IV SCH (09:01)
[2017-03-23] MEDS: predniSONE 5 mg Tablet PO SCH (09:01)
[2017-03-23] MEDS: Dabigatran 150 mg Capsule PO SCH (09:01)
[2017-03-23 10:43] VITALS: PULSE 59
[2017-03-23 11:49] VITALS: BP 112/55; PULSE 78; RESP 23; O2SAT 96
--- NOTE | 2017-03-23 12:16 | PCM.DIMED ---
Discharge Instructions Date of Service Mar 23, 2017 Dates of Hospitalization March 16, 2017 at 20:19 Discharge Diagnosis Discharge Diagnosis 1. SIRS : Resolved. 2. Septicemia, improved. 3. Elevated troponin. 4. Hyperglycemia, resolved. 5. Prolonged QT, stable. 6. Acute kidney injury, resolved. 7. Hypomagnesemia, resolved. 8. Atrial fibrillation, stable. 9.- Thrombocytopenia, chronic and stable. 10. Tobacco abuse ; Cessation discussed , Diet Discharge Diet: No restrictions Activity Discharge Activity: No restrictions Call your provider Call your provider for: Fever or Chills, Shortness of breath Patient Instructions Patient Instructions Please make appt with Dr Abbott for . Follow-up Provider: Romeo Abbott MD Follow-up with PCP in: 1 week Devin Mayo MD Mar 23, 2017 12:16
[2017-03-23] MEDS ORDERED: AMOX-366 PO (12:17)
--- NOTE | 2017-03-23 13:59 | PCM.DC.MED ---
Discharge Summary Date of Service Mar 23, 2017 Dates of Hospitalization Date of Hospital Admission March 16, 2017 at 20:19 Date of Discharge: Mar 23, 2017 Providers: Admitting Physician: Jeff Jimenez MD Primary Care Physician: Tana Sandoval MD Attending Physician: Jeff Jimenez MD Diagnosis at Time of Discharge Diagnosis at Time of Discharge 1. SIRS : Resolved. 2. Septicemia (gram variable rods), improved. 3. Elevated troponin. 4. Hyperglycemia, resolved. 5. Prolonged QT, stable. 6. Acute kidney injury, resolved. 7. Hypomagnesemia, resolved. 8. Persistent Atrial fibrillation, stable. 9.- Thrombocytopenia, chronic and stable. 10. Tobacco abuse ; Cessation discussed , Consultations Infectious disease, Dr. Abbott Procedures XRay, CTs & MRIs Chest x-ray on 03/16/2017: IMPRESSION: No acute disease is seen a semiupright portable chest. Dictated by: Kerwin Forbes M.D. on 03/16/2017 at 18:28 Cardiac Echo Impression (03/18/17) Echocardiogram Interpretation Summary 1. Normal left ventricular size with moderate to severe concentric hypertrophy and normal systolic function with an estimated EF of 55 to 60%. 2. Grossly normal right ventricular size and systolic function. The estimated RVSP is 39 mm Hg. 3. Mild to moderate aortic insufficiency. 4. Dilated ascending aorta (4.5 to 4.8 cm) Invasive Procedures None Other Diagnostics (03/18/17) US RENAL SONOGRAM IMPRESSION: 1. Grossly normal appearance the kidneys bilaterally. Interpreted and approved by: Oneida Ramos MD on 03/18/2017 at 16:36 Brief History This is a 66-year-old male with past medical history significant for atrial fibrillation and hypertension who presents today for shortness of breath and chills. Patient states that beginning approximately 3 days ago he began having shortness of breath. Shortness of breath is worse with exertion. The patient also describes orthopnea but no paroxysmal nocturnal dyspnea. He has been sleeping in a recliner for the last several days due to shortness of breath on lying down. Associated symptoms: Diaphoresis. He also describes worsening lower extremity swelling. He states that he had a echocardiogram one year ago that was normal but these records are not available for review today. The patient denies any chest pain or pressure, numbness or tingling in extremities, diarrhea, nausea, vomiting. Of note, the patient did have a dog bite to his right hand 2 weeks ago. He also was shucking oysters this weekend and had a small burn on his abdomen while cooking these oysters. No recent travel outside of country. In the emergency department initial vitals were temperature 38.7 Celsius, pulse 113, respiratory rate 30, blood pressure 128/64, satting at 96% on room air. Initial laboratory values WBC 8.9 with left shift, hemoglobin 13.3, hematocrit 40.6, platelets 120. BUN 32, creatinine 2.14, glucose 111, lactic acid 3.5, magnesium 1.0, troponin 0.083, proBNP 3998. Urinalysis showed no concerning abnormalities. Chest x-ray showed no acute disease. EKG showed atrial fibrillation with rate of 1:30. QTC 499. Hospital Course This is a 66-year-old male with past medical history significant for atrial fibrillation on pradaxa who presents today for shortness of breath and chills. On admit the patient did meet systemic inflammatory response syndrome criteria with a temperature of 38.7, pulse 113, respiratory rate of 30. He also had a lactic acid of 3.5. This does seem to be a infectious origin although a definite source has not been identified. Potential sources include the bite tana on his right hand and blister on his abdomen from cooking oysters. Doubt vibrio as he has no nausea, vomiting, diarrhea. He is on doxycycline. None of these areas look acutely infected. The patient also has orthopnea and worsening lower external swelling. His proBNP is 3998. Therefore the could be a component of heart failure as well. Pulmonary embolus is in differential but this is doubtful as he is been fairly consistent with his pradaxa other than missing 1 dose this morning. 1. SIRS : Resolved. Source is bacteremia, unclear initial source. Awaiting identification of organisms. -I will discontinue his antibiotic as of today - repeat culture in process . Diptheroid in anaerobic bottle likely a contaminant The symptoms improved with treatment of septicemia with empiric Zosyn. 2. Septicemia (gram variable rods), presumably POA. Final blood cultures are pending at time of discharge and will be followed up by Dr. Abbott in the outpatient clinic on March 30. 3. Elevated troponin. Improved. -No angina or chest pain, but patient has been having shortness of breath which may be an equivalent of angina, though elevated troponin may be due to renal failure as well -Will monitor troponin level and consult cardiology. -Echocardiography shows normal EF . -Cardiology consulted case discussed , Patient will likely need ischemic work up but that is being deferred by cardiology for a later time as outpatient . - Start Asa 81 mg Po daily , no further workup. Patient had no evidence of cardiac difficulties other than bradycardia which is related to his rate control medications. 4. Elevated ProBNP on admit was 3998 -He has orthopnea and lower external swelling. 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 Patient has underlying COPD as well . He is a heavy smoker with an over 50 years pack - Sleep study to be scheduled as outpatient - Echocardiography shows normal EF and no further workup 5. Elevated glucose -Patient's glucose on admit was 111. A1x 5.9 - Continue diabetic diet , follow clinically This improved with insulin. 6. Prolonged QT, present on admission, ongoing: -QTC of 499 on admit -Patient telemetry. -Avoid QTC prolonging medications. Continue telemetry No other difficulties during hospitalization 7. Acute kidney injury, present on admission, improved. Improving . Creatinine 1.5 and seems to plateaued now. Nephrology following . Serology pending. Follow clinically This improved with fluid resuscitation. 8. Hypomagnesemia, present admission, ongoing: -Replace prn. Follow clinically. 9. Persistent Atrial fibrillation, present remission, ongoing: -Patient is currently in atrial fibrillation. His rate has been fluctuating. -We will continue to monitor. -Anticoagulated with Pradaxa. -Patient had a run of bradycardia twice today including a 2 beats pause. He was asymptomatic .I doubt SSS. - Continue telemetry monitoring . The patient had good rate control but did have relative bradycardia on his home baseline medications while lying in bed. This was asymptomatic. 10.- Thrombocytopenia, present on admission, ongoing: -Platelets count range is 100-120 -Unknown chronicity. - Platelet count is stable 11. Tobacco abuse ; Cessation discussed , nicotine patch offered . Patient shows little to no incentive to quit . I Exam Vital Signs (Last) Date Time Temp Pulse Resp B/P Pulse Ox O2 Delivery O2 Flow Rate FiO2 03/23/17 11:49 36.7 78 23 112/55 96 Room Air 03/22/17 05:13 2.00 Exam Patient seen and examined on the day of discharge Test 03/16/17 17:45 03/16/17 17:48 03/16/17 19:15 03/16/17 22:10 Total Creatine Kinase 275U/L (21-232) Pro-B-Type Natriuretic Peptide 3998pg/mL (0-210) Thyroid Stimulating Hormone (TSH) 0.786uIU/mL (0.450-4.500) Free Thyroxine 0.85ng/dL (0.82-1.77) Hemoglobin A1c 5.9% (4.8-5.6) Urinalysis Comment None Lactic Acid Level 1.3mmol/L (0.4-2.0) Test 03/18/17 02:45 03/18/17 13:30 03/18/17 15:57 03/19/17 15:00 Erythrocyte Sedimentation Rate 45mm/hr (0-30) Troponin T 0.067ug/L (0.0-0.011) Hepatitis C Antibody <0.1s/co ratio (0.0-0.9) Streptozyme 38.0IU/mL (0.0-200.0) Vancomycin Level Trough 14.7mcg/mL White Blood Count 4.7th/mm3 (3.8-10.1) Red Blood Count 3.33mil/mm3 (4.40-5.80) Hemoglobin 10.7g/dL (13.8-17.2) Hematocrit 33.3% (41.0-50.0) Mean Corpuscular Volume 100.0fL (81-100) Mean Corpuscular Hemoglobin 32.1pg (27.0-35.0) Mean Corpuscular Hemoglobin Concent 32.1% (32.0-37.0) Red Cell Distribution Width 15.3% (12.3-15.4) Platelet Count 102bil/L (150-400) Neutrophils (%) (Auto) 65.4% (40-74) Lymphocytes (%) (Auto) 18.7% (14-46) Monocytes (%) (Auto) 13.2% (4-12) Eosinophils (%) (Auto) 2.5% (0-5) Basophils (%) (Auto) 0.2% (0-3) Hold Red Top Tube Received (Received) Test 03/20/17 03:52 03/20/17 21:50 03/22/17 04:15 03/22/17 23:59 Uric Acid 5.7mg/dL (2.6-7.2) Phosphorus Level 3.8mg/dL (2.5-4.9) Magnesium Level 1.6mg/dL (1.6-2.6) Myeloperoxidase <9.0U/mL (0.0-9.0) Vitamin D 25-Hydroxy 12.6ng/mL (30.0-100.0) Cytoplasmic ANCA (c-ANCA) Antibody <1:20titer (Neg:<1:20) Proteinase 3 (PR3) Antibodies <3.5U/mL (0.0-3.5) Atypical p-ANCA <1:20titer (Neg:<1:20) Perinuclear ANCA (p-ANCA) Antibody <1:20titer (Neg:<1:20) Anti-Glomerular Basement Memb Ab 2units (0-20) Complement C3 144mg/dL (82-167) Complement C4 28mg/dL (14-44) Hepatitis B Surface Antigen Negative (Negative) HIV (1&2) Ag and Ab, 4th Generation Non reactive (Non Reactive) Urine Color Yellow (YELLOW) Urine Appearance Clear (CLEAR,HAZY) Urine pH 5.5 (5.0-8.0) Urine Specific [place] 1.020 (1.003-1.035) Urine Protein 100mg/dL (NEG,TRACE) Urine Glucose (UA) Negativemg/dL (NEGATIVE) Urine Ketones Negativemg/dL (NEGATIVE) Urine Occult Blood Trace (NEGATIVE) Urine Nitrite Negative (NEGATIVE) Urine Bilirubin Negative (NEGATIVE) Urine Urobilinogen Normalmg/dL (NORMAL) Urine Leukocyte Esterase Negative (NEGATIVE) Urine RBC 3-10/hpf (0-2) Urine WBC 0-5/hpf (0-5) Urine Epithelial Cells Few/hpf (NONE-MOD) Urine Crystals None seen (NONE SEEN) Urine Bacteria None/hpf (NONE-FEW) Urine Hyaline Casts None/lpf (NONE) Urine Granular Casts None seen (NONE SEEN) Urine Waxy Casts None seen (NONE SEEN) Urine Red Blood Cell Casts None seen (NONE SEEN) Urine White Blood Cell Casts None seen (NONE SEEN) Urine Mucus None seen (None Seen) Urine Trichomonas None seen (NONE SEEN) Urine Yeast None (NONE SEEN) Urine Culture Reflexed Not indicated Urine Random Creatinine 140mg/dL (22-328) Urine Random Total Protein 76mg/dL (0-15) Sodium Level 141mEq/L (134-144) Potassium Level 4.8mEq/L (3.5-5.2) Chloride Level 107mEq/L (97-108) Carbon Dioxide Level 21mmol/L (18-29) Blood Urea Nitrogen 33mg/dL (8-27) Creatinine 1.46mg/dL (0.76-1.27) Estimat Glomerular Filtration Rate 52mL/min (>59) Glucose Level 101mg/dL (60-99) Calcium Level 9.6mg/dL (8.5-10.1) Total Bilirubin 0.2mg/dL (0.0-1.2) Aspartate Amino Transf (AST/SGOT) 27U/L (0-50) Alanine Aminotransferase (ALT/SGPT) 42U/L (0-44) Alkaline Phosphatase 65U/L (25-160) Total Protein 5.5g/dL (6.4-8.4) Albumin 2.9g/dL (3.4-5.0) Test 03/23/17 03:54 Procalcitonin 0.28ng/mL (0.00-0.08) Microbiology Results 03/16/17 Blood Culture - 10/20 positive; likely contaminate. 03/18/17 MRSA (PCR) - Negative 03/20/17 Eosinophil Smear (VAL[place]IA) - Negative Discharge Medications Discharge Medications Allopurinol (Allopurinol) 100 Mg Tablet 100 MG PO DAILY (Reported) Allopurinol (Allopurinol) 300 Mg Tablet 300 MG PO HS (Reported) Amoxicillin/Clav K 875-125 mg (Augmentin 875-125 mg) 1 Each Tablet 1 TABLET PO BID Prescribed by: DEVIN ARAUZ MD Colchicine (Colchicine) 0.6 Mg Capsule 0.6 MG PO DAILY (Reported) Dabigatran Etexilate Mesylate (Pradaxa) 150 Mg Capsule 150 MG PO BID (Reported) Diltiazem ER (Diltiazem ER) 180 Mg Cap.er.24h 180 MG PO BID (Reported) Lisinopril (Lisinopril) 5 Mg Tablet 5 MG PO HS (Reported) Prednisone (PredniSONE) 5 Mg Tab 5 MG PO DAILY (Reported) Followup Plan Disposition: Home Discharge Diet: No restrictions Discharge Activity: No restrictions Patient Instructions Please make appt with Dr Abbott for . Follow-up Provider: Tana Abbott MD Follow-up with PCP in: 1 week Time spent 45 minutes Devin Arauz MD Mar 23, 2017 13:59
== END 2017-03-23 14:18 | disposition home or self-care (01) | DRG 872 ==
LOC: SED 17:35 → PCC 20:19
PROVIDERS: ADMIT Hospitalist; ATTEND Hospitalist
DX: R78.81 Bacteremia (principal); R65.10 Systemic inflammatory response syndrome (SIRS) of non-infectious origin without acute organ dysfunction; N17.9 Acute kidney failure, unspecified; Z68.42 Body mass index [BMI] 45.0-49.9, adult; I48.1 Persistent atrial fibrillation; F17.210 Nicotine dependence, cigarettes, uncomplicated; Z79.01 Long term (current) use of anticoagulants; E83.42 Hypomagnesemia; B96.89 Other specified bacterial agents as the cause of diseases classified elsewhere; R74.8 Abnormal levels of other serum enzymes; I45.81 Long QT syndrome; D69.6 Thrombocytopenia, unspecified; R06.02 Shortness of breath; E66.01 Morbid (severe) obesity due to excess calories; N18.3 Chronic kidney disease, stage 3 (moderate); G47.33 Obstructive sleep apnea (adult) (pediatric); R73.09 Other abnormal glucose